=== PATIENT | female | born 1990 | race Caucasian/White ===

== ENCOUNTER 2017-04-08 08:23 | Inpatient (IN) | payer OTHER ==
[2017-04-08 09:17] VITALS: BMI 28.4
--- NOTE | 2017-04-08 11:51 | HP ---
COWS - Scale Resting Pulse: 0= [place] 80 or Below Sweatin=Flushed/Facial Moisture Restless Observation: 1= Difficult to Sit Still Pupil Size: 2= Moderately Dilated Bone or Joint Aches: 2= Severe Diffuse Aches Runny Nose/ Eye Tearin= Runny Nose/Eyes GI Upset > 30mins: 2= Nausea/Diarrhea Tremor Observation: 2= Slight Tremor Visible Yawning Observation: 1= 1-2x During Session Anxiety or Irritability: 2=Irritable/Anxious Goose Flesh Skin: 0=Smooth Skin COWS Score: 16 CIWA Score - CIWA Score Nausea/Vomitin Muscle Tremors: 4-Moderate,w/Arms Extend Anxiety: 4-Mod. Anxious/Guarded Agitation: 4-Moderately Restless Paroxysmal Sweats: 3 Orientation: 0-Oriented Tacttile Disturbances: 0-None Auditory Disturbances: 0-None Visual Disturbances: 0-None Headache: 0-None Present CIWA-Ar Total Score: 17 Admission ROS BHS - HPI Chief Complaint: Withdrawal sx. Allergies/Adverse Reactions: Allergies Allergy/AdvReac Type Severity Reaction Status Date / Time Penicillins Allergy Intermediate Rash Verified 04/08/17 09:49 History of Present Illness: 26 y/o woman with hx. of drug dependence is admitted for detox.Pt. denies previous detox. Exam Limitations: No Limitations - Ebola screening Have you traveled outside of the country in the last 21 days: No Have you had contact with anyone from an Ebola affected area: No Have you been sick,other than usual withdrawal symptoms: No - Review of Systems Constitutional: Diaphoresis EENT: reports: Nose Congestion Respiratory: reports: No Symptoms reported Cardiac: reports: No Symptoms Reported GI: reports: Nausea, Abdominal cramping Musculoskeletal: reports: No Symptoms Reported Integumentary: reports: Sweating Neuro: reports: Seizure (? possible 5 yrs. ago), Tremors Endocrine: reports: No Symptoms Reported Hematology: reports: No Symptoms Reported Psychiatric: reports: No Sypmtoms Reported Other Systems: Reviewed and Negative Patient History - Patient Medical History Hx Anemia: No Hx Asthma: No Hx Chronic Obstructive Pulmonary Disease (COPD): No Hx Cancer: No Hx Cardiac Disorders: No Hx Congestive Heart Failure: No Hx Hypertension: No Hx Hypercholesterolemia: No Hx Pacemaker: No HX Cerebrovascular Accident: No Hx Seizures: Yes (not sure but possble 5 yrs. ago) Hx Dementia: No Hx Diabetes: No Hx Gastrointestinal Disorders: No Hx Genitourinary Disorders: No Hx Sexually Transmitted Disorders: No Hx Renal Disease (ESRD): No Hx Thyroid Disease: No Hx Human Immunodeficiency Virus (HIV): No Hx Hepatitis C: No Hx Depression: No Hx Suicide Attempt: No Hx Bipolar Disorder: Yes Hx Schizophrenia: No - Patient Surgical History Past Surgical History: Yes Hx Breast Surgery: Yes (mass removed 2005) - PPD History Previous Implant?: Yes Documented Results: Negative w/o proof Implanted On Prior R Admission?: No PPD to be Administered?: Yes - Reproductive History Patient is a Female of Child Bearing Age (11 -55 yrs old): Yes Last Menstrual Period: 03/15/17 Patient : No - Smoking Cessation Smoking history: Never smoked Have you smoked in the past 12 months: No Hx Chewing Tobacco Use: No Initiated information on smoking cessation: No - Substance & Tx. History Hx Alcohol Use: No Hx Substance Use: Yes Substance Use Type: Opiates Hx Substance Use Treatment: No - Substances Abused percocet Route: Oral Frequency: Daily Amount used: 50mg Age of first use: 25 Date of Last Use: 04/07/17 Benzodiazepine (Lorazepam) Route: Oral Frequency: Daily Age of first use: 26 Date of Last Use: 04/04/17 Family Disease History - Family Disease History Family Disease History: Diabetes: Grandparent (Lung), CA: Grandparent Admission Physical Exam BHS - Vital Signs Vital Signs: Vital Signs - 24 hr 04/08/17 09:13 Temperature 96.6 F L Pulse Rate 78 Respiratory 18 Rate Blood Pressure 121/82 - Physical General Appearance: Yes: Tremorous, Irritable, Sweating, Anxious HEENTM: Yes: Nasal Congestion, Rhinorrhea Respiratory: Yes: Chest Non-Tender, Lungs Clear, Normal Breath Sounds Neck: Yes: Supple Breast: Yes: Breast Exam Deferred Cardiology: Yes: Regular Rhythm, Regular Rate, S1, S2 Abdominal: Yes: Normal Bowel Sounds, Non Tender, Soft Genitourinary: Yes: Within Normal Limits Back: Yes: Within Normal Limits Musculoskeletal: Yes: Within Normal Limits Extremities: Yes: Tremors Neurological: Yes: Fully Oriented, Alert Integumentary: Yes: Diaphoresis Lymphatic: Yes: Within Normal Limits - Diagnostic (1) Opioid dependence with withdrawal Current Visit: Yes Status: Acute (2) Sedative, hypnotic or anxiolytic dependence with withdrawal, uncomplicated Current Visit: Yes Status: Acute Cleared for Admission [facility] - Detox or Rehab [facility] Level of Care: Medically Managed Detox Regimen/Protocol: Methadone/Valium [facility] Breath Alcohol Content Breath Alcohol Content: 0 Urine Pregancy Test - Result Urine Test Results: Negative- NO Line Present Urine Drug Screen - Results Drug Screen Negative: No Urine Drug Screen Results: OXY-Oxycodone
[2017-04-08] MEDS ORDERED: MENTHOL/PHENOL 1 EACH UD MM PRN (12:03)
[2017-04-08] MEDS ORDERED: MAGNESIUM CITRATE 300 ML BOTTLE PO PRN (12:03)
[2017-04-08] MEDS ORDERED: MAG HYDROX/AL HYDROX/SIMETH 30 ML UNIT-DOSE CUP PO PRN (12:03)
[2017-04-08] MEDS ORDERED: MAGNESIUM HYDROX 2400MG/30ML ORAL SUSPENSION 30 ML CUP PO PRN (12:03)
[2017-04-08] MEDS ORDERED: guaiFENesin/D-METHORPHAN HB 10 ML UNIT-DOSE CUPS PO PRN (12:03)
[2017-04-08] MEDS ORDERED: P-EPHED 60MG/TRIPROLIDI 2.5MG TABLET PO PRN (12:03)
[2017-04-08] MEDS ORDERED: diazePAM 5 MG TABLET PO ONE (12:03)
[2017-04-08] MEDS ORDERED: diphenhydrAMINE HCL 50 MG CAPSULE PO PRN (12:03)
[2017-04-08] MEDS ORDERED: LOPERAMIDE HCL 2 MG CAPSULE PO PRN (12:03)
[2017-04-08] MEDS ORDERED: METHADONE HCL 10 MG TABLET (FOR DETOX USE ONLY) PO ONE ×2 (12:14→23:00)
[2017-04-08] MEDS: diazePAM 5 MG TABLET PO SCH ×2 (13:10→22:59)
[2017-04-08 16:39] LABS: URINE APPEARANCE CLEAR; URINE BILIRUBIN NEGATIVE (NEGATIVE); URINE COLOR LTYELLOW; URINE GLUCOSE (UA) NEGATIVE (NEGATIVE); URINE KETONE NEGATIVE (NEGATIVE); URINE LEUK ESTERASE NEGATIVE (NEGATIVE); URINE NITRITE NEGATIVE (NEGATIVE); URINE PROTEIN NEGATIVE (NEGATIVE); URINE UROBILINOGEN NEGATIVE E.U./dl (0.2-1.0)
[2017-04-08 17:03] LABS: URINE BLOOD 1+ (NEGATIVE)
[2017-04-08 17:15] LABS: URINE BACTERIA RARE /hpf (NONE SEEN); URINE MUCUS RARE; URINE RBC 1 /hpf (0-3); URINE WBC <1 /hpf (3-5)
[2017-04-08] MEDS: diazePAM 5 MG TABLET PO PRN (17:26)
[2017-04-08] MEDS: THIAMINE HCL 100 MG TABLET (FP) PO SCH (22:59)
[2017-04-09] MEDS: diazePAM 5 MG TABLET PO SCH ×3 (05:28→22:32)
[2017-04-09 09:58] LABS: MCH 30.2 pg (25.7-33.7); MCHC 33.5 g/dl (32.0-36.0); PLATELET COUNT 241 K/MM3 (134-434); WHITE BLOOD COUNT 7.3 K/mm3 (4.0-10.0)
[2017-04-09] MEDS ORDERED: METHADONE HCL 10 MG TABLET (FOR DETOX USE ONLY) PO SCH (10:00)
[2017-04-09 10:17] LABS: ALK PHOS 78 U/L (45-117); ANION GAP 5 (8-16); BILIRUBIN,TOTAL 0.8 mg/dL (0.2-1.0); CALCIUM 9.2 mg/dL (8.5-10.1); CO2 31 mmol/L (21-32); COCKROFT - GAULT 210.6045; CREATININE 0.5 mg/dL (0.55-1.02); GLUCOSE,RANDOM 60 mg/dL (74-106); SGOT/AST 15 U/L (15-37); SGPT/ALT 21 U/L (12-78); TOT PROT 7.8 g/dl (6.4-8.2)
[2017-04-09] MEDS: PRENATAL VITAMINS W/ FOLIC ACID TABLET (FP) PO SCH (10:49)
[2017-04-09] MEDS: diazePAM 5 MG TABLET PO PRN ×2 (10:51→18:01)
--- NOTE | 2017-04-09 11:01 | PN ---
S CIWA - CIWA Score Nausea/Vomitin Muscle Tremors: 3 Anxiety: 3 Agitation: 1-Slight > Activity Paroxysmal Sweats: 1-Minimal Palms Moist Orientation: 0-Oriented Tacttile Disturbances: 1-Very Mild Itch/Numbness Auditory Disturbances: 1-Very Mild Visual Disturbances: 1-Very Mild Sensitivity Headache: 2-Mild CIWA-Ar Total Score: 16 BHS COWS - Scale Resting Pulse: 1= [place] 81-100 Sweatin=Flushed/Facial Moisture Restless Observation: 3= Extraneous Movement Pupil Size: 1= Pupils >than Normal Bone or Joint Aches: 2= Severe Diffuse Aches Runny Nose/ Eye Tearin= Runny Nose/Eyes GI Upset > 30mins: 3= Vomiting/Diarrhea Tremor Observation of Outstretched Hands: 2= Slight Tremor Visible Yawning Observation: 1= 1-2x During Session Anxiety or Irritability: 2=Irritable/Anxious Goose Flesh Skin: 0=Smooth Skin COWS Score: 19 S Progress Note (SOAP) Subjective: ALERT,IRRITABLE,ANXIOUS,INTERRUPTED SLEEP,TREMOR,PAIN IN THE BODY AND BACK Objective: 04/09/17 10:58 Vital Signs Temperature 97.7 F 04/09/17 10:06 Pulse Rate 95 H 04/09/17 10:06 Respiratory Rate 16 04/09/17 10:06 Blood Pressure 117/74 04/09/17 10:06 O2 Sat by Pulse Oximetry (%) EKG NSR NO CHEST PAIN,NO SOB,NO DIZZINESS Laboratory Last Values WBC 7.3 K/mm3 (4.0-10.0) 04/09/17 06:00 RBC 4.31 M/mm3 (3.60-5.2) 04/09/17 06:00 Hgb 13.0 GM/dL (10.7-15.3) 04/09/17 06:00 Hct 38.8 % (32.4-45.2) 04/09/17 06:00 MCV 90.0 fl (80-96) 04/09/17 06:00 MCHC 33.5 g/dl (32.0-36.0) 04/09/17 06:00 RDW 13.0 % (11.6-15.6) 04/09/17 06:00 Plt Count 241 K/MM3 (134-434) 04/09/17 06:00 MPV 9.0 fl (7.5-11.1) 04/09/17 06:00 Sodium 139 mmol/L (136-145) 04/09/17 06:00 Potassium 4.1 mmol/L (3.5-5.1) 04/09/17 06:00 Chloride 103 mmol/L (98-107) 04/09/17 06:00 Carbon Dioxide 31 mmol/L (21-32) 04/09/17 06:00 Anion Gap 5 (8-16) L 04/09/17 06:00 BUN 9 mg/dL (7-18) 04/09/17 06:00 Creatinine 0.5 mg/dL (0.55-1.02) L 04/09/17 06:00 Creat Clearance w eGFR > 60 (>60) 04/09/17 06:00 Random Glucose 60 mg/dL (74-106) L 04/09/17 06:00 Calcium 9.2 mg/dL (8.5-10.1) 04/09/17 06:00 Total Bilirubin 0.8 mg/dL (0.2-1.0) 04/09/17 06:00 AST 15 U/L (15-37) 04/09/17 06:00 ALT 21 U/L (12-78) 04/09/17 06:00 Alkaline Phosphatase 78 U/L (45-117) 04/09/17 06:00 Total Protein 7.8 g/dl (6.4-8.2) 04/09/17 06:00 Albumin 4.0 g/dl (3.4-5.0) 04/09/17 06:00 Urine Color Ltyellow 04/08/17 14:50 Urine Appearance Clear 04/08/17 14:50 Urine pH 6.0 (5.0-8.0) 04/08/17 14:50 Ur Specific [place] 1.020 (1.005-1.025) 04/08/17 14:50 Urine Protein Negative (NEGATIVE) 04/08/17 14:50 Urine Glucose (UA) Negative (NEGATIVE) 04/08/17 14:50 Urine Ketones Negative (NEGATIVE) 04/08/17 14:50 Urine Blood 1+ (NEGATIVE) H 04/08/17 14:50 Urine Nitrite Negative (NEGATIVE) 04/08/17 14:50 Urine Bilirubin Negative (NEGATIVE) 04/08/17 14:50 Urine Urobilinogen Negative E.U./dl (0.2-1.0) 04/08/17 14:50 Ur Leukocyte Esterase Negative (NEGATIVE) 04/08/17 14:50 Urine RBC 1 /hpf (0-3) 04/08/17 14:50 Urine WBC <1 /hpf (3-5) 04/08/17 14:50 Ur Epithelial Cells Rare /hpf (FEW) 04/08/17 14:50 Urine Bacteria Rare /hpf (NONE SEEN) 04/08/17 14:50 Urine Mucus Rare 04/08/17 14:50 LABS PENDING Assessment: 04/09/17 11:00 WITHDRAWAL SYMPTOM Plan: CONTINUE DETOX,INITIAL GLUCOSE IS 60,FASTING GLUCOSE IN AM
[2017-04-09] MEDS: NICOTINE POLACRILEX 2 MG GUM BUC PRN (14:05)
--- NOTE | 2017-04-09 14:49 | CONSULT ---
[facility] Psychiatric Consult - Data Date of interview: 04/09/17 Admission source: [facility] Identifying data: First admission to [facility] for this 26 y/o female seeking detox treatment for opiate and benzodiazepine dependence.Patient is single without children,domiciled,unemployed and supported by relatives. Substance Abuse History: - Smoking Cessation. Smoking history: Never smoked. Have you smoked in the past 12 months: No. Hx Chewing Tobacco Use: No. Initiated information on smoking cessation: No. - Substance & Tx. History. Hx Alcohol Use: No. Hx Substance Use: Yes. Substance Use Type: Opiates. Hx Substance Use Treatment: No. - Substances Abused. percocet. Route: Oral. Frequency: Daily. Amount used: 50mg. Age of first use: 25. Date of Last Use: 04/07/17. Benzodiazepine (Lorazepam). Route: Oral. Frequency: Daily. Age of first use: 26. Date of Last Use: 04/04/17. Confirmed by patient. Medical History: Patient endorses good general health. Psychiatric History: Patient admits to a history of three psychiatric hospitalizations ([facility]).Diagnosed with Bipolar Disorder and Anxiety Disorder.Ms Redmond is followed by Dr Chirinos,a private psychiatrist, in the [place].Managed on a regimen of risperdal 4 mg/hs + adderall 20 mg po bid + ambien 10 mg/hs + ativan (dose not recalled).Patient states that she took her medications prior to this [facility] visit.Denies history of suicide attempts. Physical/Sexual Abuse/Trauma History: Patient denies history of abuse. Additional Comment: Urine Drug Screen Results: OXY-Oxycodone.Noted. Mental Status Exam - Mental Status Exam Alert and Oriented to: Time, Place, Person Cognitive Function: Good Patient Appearance: Well Groomed Mood: Anxious, Apprehensive Affect: Mood Congruent Patient Behavior: Fatigued, Appropriate, Cooperative Speech Pattern: Clear Voice Loudness: Normal Thought Process: Goal Oriented Thought Disorder: Not Present Hallucinations: Denies Suicidal Ideation: Denies Homicidal Ideation: Denies Insight/Judgement: Poor Sleep: Poorly, Difficulty falling asleep Appetite: Good Muscle strength/Tone: Normal Gait/Station: Normal Psychiatric Findings - Problem List ([place] 1, 2,3) (1) Opioid dependence with withdrawal Current Visit: Yes Status: Acute (2) Sedative, hypnotic or anxiolytic dependence with withdrawal, uncomplicated Current Visit: Yes Status: Acute (3) Substance induced mood disorder Current Visit: Yes Status: Acute (4) Bipolar disorder Current Visit: Yes Status: Chronic Comment: By history. (5) Insomnia Current Visit: Yes Status: Acute - Initial Treatment Plan Initial Treatment Plan: Psychoeducation.Detoxification.Medications : risperdal 3 mg po hs + ambien 5 mg po hs + wellbutrin XL 150 mg po daily.Medications are verified through review of pharmacy claims (scripts issued on 03/13/17 at the [facility] ([address]) from provider Dr Chirinos).Side effects/benefits discussed with patient.Made aware of potential for abnormal involuntary movements,akathisia,akinesia,dystonias,dyskinesias,neuroleptic malignant syndrome,endocrine complications (galactorrhea,gynecomastia,sexual dysfunction) and cardiac adverse events from the use of risperdal,seizures (bupropion) and parasomnias (ambien).No report (as per patient) of prior adverse effects.Patient is in agreement with this plan of care.Observation.Adderall is held (to be resumed by OPD psychiatrist).
[2017-04-09] MEDS: ZOLPIDEM TARTRATE 5 MG TABLET PO PRN (22:32)
[2017-04-09] MEDS: THIAMINE HCL 100 MG TABLET (FP) PO SCH (22:32)
[2017-04-09] MEDS: risperiDONE 3 MG TABLET PO SCH (22:32)
[2017-04-10] MEDS: diazePAM 5 MG TABLET PO PRN ×2 (05:21→17:37)
[2017-04-10] MEDS: diazePAM 5 MG TABLET PO SCH ×2 (10:49→22:26)
[2017-04-10] MEDS: PRENATAL VITAMINS W/ FOLIC ACID TABLET (FP) PO SCH (10:49)
[2017-04-10] MEDS: METHADONE HCL 5 MG TABLET (FOR DETOX USE ONLY) PO SCH (10:50)
[2017-04-10] MEDS: cloNIDine HCL 0.1 MG TABLET PO SCH ×2 (11:32→22:27)
[2017-04-10] MEDS: CYCLOBENZAPRINE HCL 10 MG TABLET (FP) PO PRN ×2 (11:32→20:06)
--- NOTE | 2017-04-10 12:10 | PN ---
S CIWA - CIWA Score Nausea/Vomitin Muscle Tremors: 3 Anxiety: 2 Agitation: 2 Paroxysmal Sweats: 1-Minimal Palms Moist Orientation: 0-Oriented Tacttile Disturbances: 1-Very Mild Itch/Numbness Auditory Disturbances: 1-Very Mild Visual Disturbances: 1-Very Mild Sensitivity Headache: 2-Mild CIWA-Ar Total Score: 16 BHS COWS - Scale Resting Pulse: 1= [place] 81-100 Sweatin= Chills/Flushing Restless Observation: 3= Extraneous Movement Pupil Size: 1= Pupils >than Normal Bone or Joint Aches: 2= Severe Diffuse Aches Runny Nose/ Eye Tearin= Runny Nose/Eyes GI Upset > 30mins: 2= Nausea/Diarrhea Tremor Observation of Outstretched Hands: 2= Slight Tremor Visible Yawning Observation: 1= 1-2x During Session Anxiety or Irritability: 2=Irritable/Anxious Goose Flesh Skin: 0=Smooth Skin COWS Score: 17 S Progress Note (SOAP) Subjective: ALERT,IRRITABLE,ANXIOUS,INTERRUPTED SLEEP,PAIN IN THE BODY AND BACK Objective: 04/10/17 12:08 Vital Signs Temperature 97.9 F 04/10/17 06:13 Pulse Rate 94 H 04/10/17 06:13 Respiratory Rate 18 04/10/17 06:13 Blood Pressure 110/62 04/10/17 06:13 O2 Sat by Pulse Oximetry (%) Laboratory Last Values WBC 7.3 K/mm3 (4.0-10.0) 04/09/17 06:00 RBC 4.31 M/mm3 (3.60-5.2) 04/09/17 06:00 Hgb 13.0 GM/dL (10.7-15.3) 04/09/17 06:00 Hct 38.8 % (32.4-45.2) 04/09/17 06:00 MCV 90.0 fl (80-96) 04/09/17 06:00 MCHC 33.5 g/dl (32.0-36.0) 04/09/17 06:00 RDW 13.0 % (11.6-15.6) 04/09/17 06:00 Plt Count 241 K/MM3 (134-434) 04/09/17 06:00 MPV 9.0 fl (7.5-11.1) 04/09/17 06:00 Sodium 139 mmol/L (136-145) 04/09/17 06:00 Potassium 4.1 mmol/L (3.5-5.1) 04/09/17 06:00 Chloride 103 mmol/L (98-107) 04/09/17 06:00 Carbon Dioxide 31 mmol/L (21-32) 04/09/17 06:00 Anion Gap 5 (8-16) L 04/09/17 06:00 BUN 9 mg/dL (7-18) 04/09/17 06:00 Creatinine 0.5 mg/dL (0.55-1.02) L 04/09/17 06:00 Creat Clearance w eGFR > 60 (>60) 04/09/17 06:00 Random Glucose 60 mg/dL (74-106) L 04/09/17 06:00 Fasting Glucose 96 mg/dL (70-105) 04/10/17 08:00 Calcium 9.2 mg/dL (8.5-10.1) 04/09/17 06:00 Total Bilirubin 0.8 mg/dL (0.2-1.0) 04/09/17 06:00 AST 15 U/L (15-37) 04/09/17 06:00 ALT 21 U/L (12-78) 04/09/17 06:00 Alkaline Phosphatase 78 U/L (45-117) 04/09/17 06:00 Total Protein 7.8 g/dl (6.4-8.2) 04/09/17 06:00 Albumin 4.0 g/dl (3.4-5.0) 04/09/17 06:00 Urine Color Ltyellow 04/08/17 14:50 Urine Appearance Clear 04/08/17 14:50 Urine pH 6.0 (5.0-8.0) 04/08/17 14:50 Ur Specific [place] 1.020 (1.005-1.025) 04/08/17 14:50 Urine Protein Negative (NEGATIVE) 04/08/17 14:50 Urine Glucose (UA) Negative (NEGATIVE) 04/08/17 14:50 Urine Ketones Negative (NEGATIVE) 04/08/17 14:50 Urine Blood 1+ (NEGATIVE) H 04/08/17 14:50 Urine Nitrite Negative (NEGATIVE) 04/08/17 14:50 Urine Bilirubin Negative (NEGATIVE) 04/08/17 14:50 Urine Urobilinogen Negative E.U./dl (0.2-1.0) 04/08/17 14:50 Ur Leukocyte Esterase Negative (NEGATIVE) 04/08/17 14:50 Urine RBC 1 /hpf (0-3) 04/08/17 14:50 Urine WBC <1 /hpf (3-5) 04/08/17 14:50 Ur Epithelial Cells Rare /hpf (FEW) 04/08/17 14:50 Urine Bacteria Rare /hpf (NONE SEEN) 04/08/17 14:50 Urine Mucus Rare 04/08/17 14:50 RPR Titer Nonreactive (NONREACTIVE) 04/09/17 06:00 Assessment: 04/10/17 12:09 WITHDRAWAL SYMPTOM Plan: CONTINUE DETOX
--- NOTE | 2017-04-10 15:51 | EKG ---
Test Reason : Blood Pressure : / mmHG Vent. Rate : 079 BPM Atrial Rate : 079 BPM P-R Int : 192 ms QRS Dur : 086 ms QT Int : 382 ms P-R-T Axes : 106 137 123 degrees QTc Int : 438 ms SUSPECT ARM LEAD REVERSAL NORMAL SINUS RHYTHM RECOMMEND REPEAT TRACING Confirmed by ELVIRA CABRERA, SIMRAN ([id number]) on 04/10/2017 3:51:25 PM Referred By: Jason Herman Confirmed By:SIMRAN FELIX MD
[2017-04-10] MEDS: risperiDONE 3 MG TABLET PO SCH (22:26)
[2017-04-10] MEDS: ZOLPIDEM TARTRATE 5 MG TABLET PO PRN (22:26)
[2017-04-10] MEDS: THIAMINE HCL 100 MG TABLET (FP) PO SCH (22:26)
[2017-04-11] MEDS: IBUPROFEN 400 MG TABLET (FP) PO PRN (03:36)
[2017-04-11] MEDS: CYCLOBENZAPRINE HCL 10 MG TABLET (FP) PO PRN ×2 (05:25→22:15)
[2017-04-11] MEDS: ACETAMINOPHEN 325 MG TABLET (FP) PO PRN (05:25)
[2017-04-11] MEDS: diazePAM 5 MG TABLET PO PRN (05:25)
--- NOTE | 2017-04-11 10:13 | PN ---
BHS Progress Note (SOAP) Subjective: ALERT,IRRITABLE,ANXIOUS,INTERRUPTED SLEEP,PAIN IN THE BODY AND BACK Objective: 04/11/17 10:12 Vital Signs Temperature 98.8 F 04/11/17 09:50 Pulse Rate 113 H 04/11/17 09:50 Respiratory Rate 16 04/11/17 09:50 Blood Pressure 110/74 04/11/17 09:50 O2 Sat by Pulse Oximetry (%) Assessment: 04/11/17 10:12 WITHDRAWAL SYMPTOM Plan: CONTINUE DETOX
[2017-04-11] MEDS: PRENATAL VITAMINS W/ FOLIC ACID TABLET (FP) PO SCH (10:35)
[2017-04-11] MEDS: cloNIDine HCL 0.1 MG TABLET PO SCH ×2 (10:36→22:13)
[2017-04-11] MEDS: diazePAM 5 MG TABLET PO SCH ×2 (10:36→22:13)
[2017-04-11] MEDS: METHADONE HCL 5 MG TABLET (FOR DETOX USE ONLY) PO SCH (10:37)
[2017-04-11] MEDS: ZOLPIDEM TARTRATE 5 MG TABLET PO PRN (22:13)
[2017-04-11] MEDS: THIAMINE HCL 100 MG TABLET (FP) PO SCH (22:14)
[2017-04-11] MEDS: risperiDONE 3 MG TABLET PO SCH (22:14)
[2017-04-11] MEDS: NICOTINE POLACRILEX 2 MG GUM BUC PRN (22:37)
[2017-04-12] MEDS: hydrOXYzine PAMOATE 50 MG CAPSULE (FP) PO PRN ×2 (01:46→17:28)
[2017-04-12] MEDS: IBUPROFEN 400 MG TABLET (FP) PO PRN ×2 (01:47→15:29)
[2017-04-12] MEDS: ACETAMINOPHEN 325 MG TABLET (FP) PO PRN ×2 (04:18→19:55)
[2017-04-12] MEDS: CYCLOBENZAPRINE HCL 10 MG TABLET (FP) PO PRN ×3 (04:37→22:24)
--- NOTE | 2017-04-12 09:41 | PN ---
S Progress Note (SOAP) Subjective: ALERT,IRRITABLE,INTERRUPTED SLEEP Objective: 04/12/17 09:39 Vital Signs Temperature 97.9 F 04/11/17 20:55 Pulse Rate 106 H 04/12/17 05:54 Respiratory Rate 18 04/12/17 05:54 Blood Pressure 120/55 04/12/17 05:54 O2 Sat by Pulse Oximetry (%) Assessment: 04/12/17 09:39 WITHDRAWAL SYMPTOM Plan: CONTINUE DETOX,DISCHARGE IN AM
[2017-04-12] MEDS ORDERED: METHADONE HCL 10 MG TABLET (FOR DETOX USE ONLY) PO SCH (10:00)
[2017-04-12] MEDS ORDERED: diazePAM 5 MG TABLET PO SCH (10:00)
[2017-04-12] MEDS: PRENATAL VITAMINS W/ FOLIC ACID TABLET (FP) PO SCH (10:20)
[2017-04-12] MEDS: cloNIDine HCL 0.1 MG TABLET PO SCH ×2 (10:20→22:22)
[2017-04-12] MEDS: NICOTINE POLACRILEX 2 MG GUM BUC PRN ×2 (12:47→17:29)
--- NOTE | 2017-04-12 14:11 | EKG ---
Test Reason : Blood Pressure : / mmHG Vent. Rate : 100 BPM Atrial Rate : 100 BPM P-R Int : 204 ms QRS Dur : 078 ms QT Int : 358 ms P-R-T Axes : 055 047 038 degrees QTc Int : 461 ms NORMAL SINUS RHYTHM WHEN COMPARED WITH ECG OF 08-APR-2017 12:21, VENT. RATE HAS INCREASED Confirmed by TAYA GASTELUM MD ([id number]) on 04/12/2017 2:10:57 PM Referred By: Jason Herman Confirmed By:TAYA GASTELUM MD
[2017-04-12] MEDS: THIAMINE HCL 100 MG TABLET (FP) PO SCH (22:22)
[2017-04-12] MEDS: risperiDONE 3 MG TABLET PO SCH (22:22)
[2017-04-12] MEDS ORDERED: ZOLPIDEM TARTRATE 5 MG TABLET PO ONE (22:55)
[2017-04-13] MEDS: CYCLOBENZAPRINE HCL 10 MG TABLET (FP) PO PRN (05:35)
[2017-04-13] MEDS ORDERED: METHADONE HCL 5 MG TABLET (FOR DETOX USE ONLY) PO SCH (06:00)
--- NOTE | 2017-04-13 08:57 | PN ---
S Progress Note (SOAP) Subjective: ALERT,NO COMPLAINT Objective: 04/13/17 08:56 Vital Signs Temperature 97.7 F 04/13/17 06:00 Pulse Rate 104 H 04/13/17 06:00 Respiratory Rate 18 04/13/17 06:00 Blood Pressure 125/70 04/13/17 06:00 O2 Sat by Pulse Oximetry (%) Assessment: 04/13/17 08:56 DETOX COMPLETED,NO WITHDRAWAL SYMPTOM Plan: DISCHARGE TODAY,FOLLOW UP WITH AFTER CARE PROGRAM ARRANGEMENT
--- NOTE | 2017-04-13 09:02 | DS ---
[facility] Detox Discharge Summary Admission Date: 04/08/17 Discharge Date: 04/13/17 - History Present History: Opioid Dependence, Sedative Dependence Additional Comments: FOLLOW UP WITH AFTER CARE PROGRAM REVELATION ARRANGEMENT Pertinent Past History: BIPOLAR DISORDER - Physical Exam Results Vital Signs: Vital Signs Temperature 97.7 F 04/13/17 06:00 Pulse Rate 104 H 04/13/17 06:00 Respiratory Rate 18 04/13/17 06:00 Blood Pressure 125/70 04/13/17 06:00 O2 Sat by Pulse Oximetry (%) Pertinent Admission Physical Exam Findings: WITHDRAWAL SYMPTOM - Treatment Hospital Course: Detox Protocol Followed, Detoxed Safely, Responded well, Discharged Condition Good, Rehab Referral Accepted Patient has Accepted a Rehab Referral to: [facility] - Medication Discharge Medications: Ambulatory Orders Dextroamphetamine/Amphetamine [Adderall 10 mg Tablet] 40 mg PO DAILY 04/08/17 Lorazepam [Ativan] 5 mg PO DAILY 04/08/17 Risperidone [Risperdal] 4 mg PO DAILY 04/08/17 - Diagnosis (1) Insomnia Current Visit: Yes Status: Acute (2) Opioid dependence with withdrawal Current Visit: Yes Status: Acute (3) Sedative, hypnotic or anxiolytic dependence with withdrawal, uncomplicated Current Visit: Yes Status: Acute (4) Bipolar disorder Current Visit: Yes Status: Chronic - AMA Did Patient Leave Against Medical Advice: No
[2017-04-13 09:37] VITALS: BP 127/77; PULSE 120; TEMP 98.4
[2017-04-13] MEDS: PRENATAL VITAMINS W/ FOLIC ACID TABLET (FP) PO SCH (09:54)
[2017-04-13] MEDS: cloNIDine HCL 0.1 MG TABLET PO SCH (09:54)
[2017-04-13] MEDS: hydrOXYzine PAMOATE 50 MG CAPSULE (FP) PO PRN (09:56)
[2017-04-13] MEDS: NICOTINE POLACRILEX 2 MG GUM BUC PRN (10:26)
== END 2017-04-13 10:40 | disposition other institution (70) | DRG 773 ==
LOC: YASAS 08:23 → Y6N 11:50
PROVIDERS: ADMIT Internal Medicine; ATTEND Internal Medicine
PROC: HZ2ZZZZ Detoxification Services for Substance Abuse Treatment (ICD-10-PCS; principal; 2017-04-08)
DX: F11.23 Opioid dependence with withdrawal (principal); F13.230 Sedative, hypnotic or anxiolytic dependence with withdrawal, uncomplicated; F31.9 Bipolar disorder, unspecified; F19.24 Other psychoactive substance dependence with psychoactive substance-induced mood disorder; G47.00 Insomnia, unspecified
CPT/HCPCS: 36415; 80053; 81003; 81015; 82947; 85027; 86593; 93005; 93010

== ENCOUNTER 2017-04-13 11:06 | Inpatient (IN) | payer OTHER ==
[2017-04-13 11:29] VITALS: BMI 30.1
[2017-04-13] MEDS ORDERED: LOPERAMIDE HCL 2 MG CAPSULE PO PRN (13:25)
[2017-04-13] MEDS ORDERED: MAGNESIUM HYDROX 2400MG/30ML ORAL SUSPENSION 30 ML CUP PO PRN (13:25)
[2017-04-13] MEDS ORDERED: ACETAMINOPHEN 325 MG TABLET (FP) PO PRN (13:25)
[2017-04-13] MEDS ORDERED: P-EPHED 60MG/TRIPROLIDI 2.5MG TABLET PO PRN (13:25)
[2017-04-13] MEDS ORDERED: MAGNESIUM CITRATE 300 ML BOTTLE PO PRN (13:25)
[2017-04-13] MEDS ORDERED: MAG HYDROX/AL HYDROX/SIMETH 30 ML UNIT-DOSE CUP PO PRN (13:25)
--- NOTE | 2017-04-13 13:27 | HP ---
[facility] Rehab Assess/Revision - Admission History Ad[facility] to Rehab [facility] Date of Admission to Rehab: 04/13/17 - Vital signs Vital Signs: Vital Signs Period Temp Pulse Resp BP Sys/May Pulse Ox Last 24 Hr 99 F-99 F 103-103 120-120/75-75 - Findings Detox History & Physical reviewed: Yes Concur with findings: Yes
[2017-04-13] MEDS: IBUPROFEN 400 MG TABLET (FP) PO PRN (14:10)
[2017-04-13] MEDS: hydrOXYzine PAMOATE 50 MG CAPSULE (FP) PO PRN (18:03)
[2017-04-13] MEDS: NICOTINE POLACRILEX 2 MG GUM BUC PRN (18:29)
[2017-04-13] MEDS: risperiDONE 3 MG TABLET PO SCH (21:56)
[2017-04-13] MEDS: THIAMINE HCL 100 MG TABLET (FP) PO SCH (21:57)
[2017-04-13] MEDS: SUVOREXANT 10 MG TABLET PO PRN (22:00)
[2017-04-13] MEDS: guaiFENesin/D-METHORPHAN HB 10 ML UNIT-DOSE CUPS PO PRN (23:05)
[2017-04-13] MEDS: MENTHOL/PHENOL 1 EACH UD MM PRN (23:06)
[2017-04-14] MEDS: diphenhydrAMINE HCL 50 MG CAPSULE PO PRN (01:09)
[2017-04-14] MEDS: MENTHOL/PHENOL 1 EACH UD MM PRN ×3 (03:06→15:18)
[2017-04-14] MEDS: hydrOXYzine PAMOATE 50 MG CAPSULE (FP) PO PRN ×4 (06:12→21:42)
--- NOTE | 2017-04-14 08:12 | HP ---
Psychiatrist Admission - Data Date of interview: 04/14/17 Admission source: [facility] Identifying data: This is the first admission to [address] [place] [address] for this 26 years old H female single,no children,resides with mother,student of nursing school. Medical History: unremarkable Psychiatric History: Patient has been on Adderall since school age,prescribed by her Family doctor.First contact with psychiatrist was about 1 year ago in March 2016 to depressed mood,drug use.She was placed on Ativan,Adderall, Seroquel.Patient reports 3 psychiatric admissions to [facility] due to severe depression .She was dx with Bipolar II Disorder.She was placed on Risperidone.She sees private psychiatrist in the [place],current medications Seroquel 100 mg po hs,Adderall 20 mg po bid,Risperidone 4 mg po hs, Ambien 10 mg po hs ,Wellbutrin XL 150 mg po daily and Ativan PRN. Physical/Sexual Abuse/Trauma History: denies history of sexual/physical abuse. Vital Signs: Vital Signs - 24 hr 04/13/17 04/13/17 04/14/17 11:24 11:28 00:30 Temperature 99 F 99 F Pulse Rate 103 H 103 H Respiratory 17 17 16 Rate Blood Pressure 120/75 120/75 04/14/17 06:49 Temperature 98.1 F Pulse Rate 98 H Respiratory 18 Rate Blood Pressure 137/72 Allergies/Adverse Reactions: Allergies Allergy/AdvReac Type Severity Reaction Status Date / Time Penicillins Allergy Intermediate Rash Verified 04/08/17 09:49 Date of last physical exam: 04/13/17 Concur with the findings of this exam: Yes - Substance Abuse/Tx History Hx Alcohol Use: Yes (socially) Hx Substance Use: Yes (Percoset since 25 yo(50 mg po daily),Ativan since 26 yo on /off) Substance Use Type: Opiates, Tranquilizers Hx Substance Use Treatment: Yes (completed detox once recently) - Admission Criteria Previous failed treatment: Yes Poor recovery environment: Yes Comorbidities: Yes Lacks judgement: Yes Mental Status Exam - Mental Status Exam Alert and Oriented to: Time, Place, Person Cognitive Function: Grossly Intact Patient Appearance: Unkempt Mood: Anxious Affect: Labile Patient Behavior: Cooperative Speech Pattern: Clear Voice Loudness: Normal Thought Process: Goal Oriented Thought Disorder: Not Present Hallucinations: Denies Suicidal Ideation: Denies Homicidal Ideation: Denies Insight/Judgement: Fair Sleep: Fair Appetite: Fair Muscle strength/Tone: Normal Gait/Station: Normal Psychiatric Findings - Problem List ([place] 1, 2,3) (1) Opioid dependence with withdrawal Status: Chronic (2) Sedative, hypnotic or anxiolytic dependence with withdrawal, uncomplicated Status: Chronic (3) Bipolar II disorder Status: Chronic - Initial Treatment Plan Initial Treatment Plan: Risperidone 3 mg po hs,Neurontin 100 mg po tid, Wellbutrin XL 150 mg po daily,Seroquel 100 mg po hs. Will monitor progress.
[2017-04-14] MEDS: guaiFENesin/D-METHORPHAN HB 10 ML UNIT-DOSE CUPS PO PRN (09:00)
[2017-04-14] MEDS: PRENATAL VITAMINS W/ FOLIC ACID TABLET (FP) PO SCH (09:54)
[2017-04-14 12:34] LABS: HIV 1 & 2 AB NEGATIVE; HIV 1 AGp24 NEGATIVE
[2017-04-14] MEDS: GABAPENTIN 100 MG CAPSULE (FP) PO SCH ×2 (13:01→21:41)
--- NOTE | 2017-04-14 15:00 | PN ---
BHS Progress Note Note: C/O sore throat Exam : enlarged tonsils with redness Dx. : URI P : Zithromax 500mg x 7 days
[2017-04-14] MEDS: AZITHROMYCIN 250 MG TABLET (FP) PO SCH (15:17)
[2017-04-14] MEDS: NICOTINE POLACRILEX 2 MG GUM BUC PRN (15:18)
[2017-04-14] MEDS ORDERED: PT OWN MED DRAWER 7, Y5N ONE (19:44)
[2017-04-14] MEDS: THIAMINE HCL 100 MG TABLET (FP) PO SCH (21:41)
[2017-04-14] MEDS: risperiDONE 3 MG TABLET PO SCH (21:41)
[2017-04-14] MEDS: QUEtiapine FUMARATE 100 MG TABLET (FP) PO SCH (21:42)
[2017-04-14] MEDS: SUVOREXANT 10 MG TABLET PO PRN (21:43)
[2017-04-15] MEDS: hydrOXYzine PAMOATE 50 MG CAPSULE (FP) PO PRN ×5 (02:35→22:09)
[2017-04-15] MEDS: MENTHOL/PHENOL 1 EACH UD MM PRN ×3 (02:35→15:54)
[2017-04-15] MEDS: GABAPENTIN 100 MG CAPSULE (FP) PO SCH ×3 (06:28→21:30)
[2017-04-15] MEDS: AZITHROMYCIN 250 MG TABLET (FP) PO SCH (10:29)
[2017-04-15] MEDS: PRENATAL VITAMINS W/ FOLIC ACID TABLET (FP) PO SCH (10:29)
[2017-04-15] MEDS: IBUPROFEN 400 MG TABLET (FP) PO PRN (15:52)
[2017-04-15] MEDS: THIAMINE HCL 100 MG TABLET (FP) PO SCH (21:30)
[2017-04-15] MEDS: QUEtiapine FUMARATE 100 MG TABLET (FP) PO SCH (21:30)
[2017-04-15] MEDS: SUVOREXANT 10 MG TABLET PO PRN (21:30)
[2017-04-15] MEDS: risperiDONE 3 MG TABLET PO SCH (22:09)
[2017-04-16] MEDS: GABAPENTIN 100 MG CAPSULE (FP) PO SCH (06:33)
[2017-04-16] MEDS: hydrOXYzine PAMOATE 50 MG CAPSULE (FP) PO PRN ×2 (06:34→20:09)
[2017-04-16] MEDS: AZITHROMYCIN 250 MG TABLET (FP) PO SCH (10:33)
[2017-04-16] MEDS: PRENATAL VITAMINS W/ FOLIC ACID TABLET (FP) PO SCH (10:33)
[2017-04-16] MEDS: CYCLOBENZAPRINE HCL 10 MG TABLET (FP) PO SCH (10:33)
[2017-04-16] MEDS: QUEtiapine FUMARATE 100 MG TABLET (FP) PO SCH ×2 (10:36→21:42)
[2017-04-16] MEDS: guaiFENesin/D-METHORPHAN HB 10 ML UNIT-DOSE CUPS PO PRN (10:37)
[2017-04-16] MEDS: LIDOCAINE VISCOUS 2% ORAL/TOP 20 ML UNIT-DOSE CUP MM PRN ×2 (15:19→20:09)
[2017-04-16] MEDS: THIAMINE HCL 100 MG TABLET (FP) PO SCH (21:42)
[2017-04-16] MEDS: risperiDONE 3 MG TABLET PO SCH (21:42)
[2017-04-16] MEDS: SUVOREXANT 10 MG TABLET PO PRN (21:45)
[2017-04-17] MEDS: IBUPROFEN 400 MG TABLET (FP) PO PRN (06:04)
[2017-04-17] MEDS: hydrOXYzine PAMOATE 50 MG CAPSULE (FP) PO PRN ×3 (06:05→20:04)
[2017-04-17] MEDS: LIDOCAINE VISCOUS 2% ORAL/TOP 20 ML UNIT-DOSE CUP MM PRN ×2 (06:05→23:33)
[2017-04-17] MEDS: CYCLOBENZAPRINE HCL 10 MG TABLET (FP) PO SCH (09:08)
[2017-04-17] MEDS: AZITHROMYCIN 250 MG TABLET (FP) PO SCH (09:08)
[2017-04-17] MEDS: QUEtiapine FUMARATE 100 MG TABLET (FP) PO SCH ×2 (09:08→21:27)
[2017-04-17] MEDS: PRENATAL VITAMINS W/ FOLIC ACID TABLET (FP) PO SCH (09:08)
[2017-04-17] MEDS: THIAMINE HCL 100 MG TABLET (FP) PO SCH (21:27)
[2017-04-17] MEDS: risperiDONE 3 MG TABLET PO SCH (21:27)
[2017-04-17] MEDS: diphenhydrAMINE HCL 50 MG CAPSULE PO PRN (21:27)
[2017-04-17] MEDS: NICOTINE POLACRILEX 2 MG GUM BUC PRN (21:45)
[2017-04-18] MEDS: QUEtiapine FUMARATE 100 MG TABLET (FP) PO SCH ×2 (09:58→21:10)
[2017-04-18] MEDS: CYCLOBENZAPRINE HCL 10 MG TABLET (FP) PO SCH (09:58)
[2017-04-18] MEDS: PRENATAL VITAMINS W/ FOLIC ACID TABLET (FP) PO SCH (09:58)
[2017-04-18] MEDS: AZITHROMYCIN 250 MG TABLET (FP) PO SCH (09:58)
[2017-04-18] MEDS: hydrOXYzine PAMOATE 50 MG CAPSULE (FP) PO PRN ×2 (13:07→17:53)
[2017-04-18] MEDS: NICOTINE POLACRILEX 2 MG GUM BUC PRN ×2 (17:56→22:05)
[2017-04-18] MEDS: risperiDONE 3 MG TABLET PO SCH (21:10)
[2017-04-18] MEDS: diphenhydrAMINE HCL 50 MG CAPSULE PO PRN (21:10)
[2017-04-18] MEDS: THIAMINE HCL 100 MG TABLET (FP) PO SCH (21:10)
[2017-04-19 06:52] VITALS: BP 108/65; PULSE 103; TEMP 98
--- NOTE | 2017-04-19 09:47 | PN ---
Psychiatric Progress Note Vital Signs: Vital Signs Period Temp Pulse Resp BP Sys/May Pulse Ox Last 24 Hr 98.0 F 103 16-16 108/65 Date of Session: 04/19/17 Chief Complaint:: Discharge visit HPI: Patient addressed Opioid dependence comorbid with Substance induced mood disorder . ROS: unremarkable Current Medications: Active Medications Generic Name Dose Route Start Last Admin Trade Name Freq PRN Reason Stop Dose Admin Acetaminophen 650 mg 04/13/17 13:25 04/14/17 15:19 Tylenol - PO 650 mg Q4H PRN Administration FEVER OR PAIN Al Hydroxide/Mg Hydroxide 30 ml 04/13/17 13:25 Mylanta Oral Suspension - PO Q6H PRN DYSPEPSIA Azithromycin 500 mg 04/14/17 15:00 04/18/17 09:58 Zithromax - PO 500 mg DAILY LALITA Administration Bupropion HCl 150 mg 04/14/17 10:00 04/18/17 09:58 Wellbutrin Xl - PO 150 mg DAILY LALITA Administration Cyclobenzaprine HCl 10 mg 04/16/17 10:00 04/18/17 09:58 Flexeril - PO 10 mg DAILY LALITA Administration Diphenhydramine HCl 50 mg 04/13/17 13:25 04/18/17 21:10 Benadryl - PO 50 mg HSMR1 PRN Administration FOR ITCHING Eucalyptus/Menthol/Phenol/Sorbitol 1 each 04/13/17 13:25 04/15/17 15:54 Cepastat Lozenge - MM 1 each Q4H PRN Administration SORE THROAT Guaifenesin 10 ml 04/13/17 13:25 04/16/17 10:37 Robitussin Dm - PO 10 ml Q6H PRN Administration COUGH Hydroxyzine Pamoate 50 mg 04/13/17 14:35 04/18/17 17:53 Vistaril - PO 50 mg Q4H PRN Administration ANXIETY Ibuprofen 400 mg 04/13/17 13:25 04/17/17 06:04 Motrin - PO 400 mg Q6H PRN Administration PAIN Lidocaine HCl 20 ml 04/16/17 15:07 04/17/17 23:33 Xylocaine 2% Viscous Oral - MM 20 ml Q4HPO PRN Administration ORAL PAIN/MOUTH SORES Loperamide HCl 4 mg 04/13/17 13:25 Imodium - PO Q6H PRN DIARRHEA Magnesium Hydroxide 30 ml 04/13/17 13:25 Milk Of Magnesia - PO DAILY PRN CONSTIPATION Nicotine Polacrilex 2 mg 04/13/17 13:25 04/18/17 22:05 Nicorette Gum - BUC 2 mg Q2H PRN Administration NICOTINE REPLACEMENT RX Multivit/Folic Acid/Iron 1 tab 04/14/17 10:00 04/18/17 09:58 Vitamins (Sjr) - PO 1 tab DAILY LALITA Administration Pseudoephedrine/Triprolidine 1 combo 04/13/17 13:25 Actifed - PO TID PRN NASAL CONGESTION Quetiapine Fumarate 100 mg 04/14/17 22:00 04/18/17 21:10 Seroquel - PO 100 mg HS LALITA Administration Quetiapine Fumarate 100 mg 04/16/17 10:30 04/18/17 09:58 Seroquel - PO 100 mg DAILY LALITA Administration Risperidone 3 mg 04/13/17 22:00 04/18/17 21:10 Risperdal - PO 3 mg HS LALITA Administration Thiamine HCl 100 mg 04/13/17 22:00 04/18/17 21:10 Vitamin B1 - PO 100 mg HS LALITA Administration Current Side Effect: No Lab tests ordered: No Lab tests reviewed: Yes Provider note:: Patient decided to sign out today since she doesnt feel comfortable in this program and will be able to address her issues on outpatient basis.Associate Broker and other medical staff made efforts to convince her to continue further stabilization in inpatient facility,but patient decided to leave [facility].Patient will continue to see a psychiatrsit Luisa JOY in the [facility].She continues to find that Wellbutrin XL 150 mg po am,Risperdal 3 mg po hs and Seroquel 100 mg po bid will help to reduce her anxiety,mood instability.Scripts for 30 days provided. Therapy provided focusing on relapse prevention. Total face to face time:: 30 Mental Status Exam - Mental Status Exam Alert and Oriented to: Time, Place, Person Cognitive Function: Grossly Intact Patient Appearance: Well Groomed Mood: Anxious Affect: Labile Patient Behavior: Restless, Resitive to Care Speech Pattern: Clear Voice Loudness: Normal Thought Process: Goal Oriented Thought Disorder: Not Present Hallucinations: Denies Suicidal Ideation: Denies Homicidal Ideation: Denies Insight/Judgement: Impaired Sleep: Fair Appetite: Good Muscle strength/Tone: Normal Gait/Station: Normal Psychiatric Treatment Plan - Problem List (1) Opioid dependence with withdrawal Current Visit: Yes (2) Sedative, hypnotic or anxiolytic dependence with withdrawal, uncomplicated Current Visit: Yes (3) Bipolar II disorder Current Visit: Yes
[2017-04-19] MEDS: AZITHROMYCIN 250 MG TABLET (FP) PO SCH (10:21)
[2017-04-19] MEDS: PRENATAL VITAMINS W/ FOLIC ACID TABLET (FP) PO SCH (10:21)
[2017-04-19] MEDS: QUEtiapine FUMARATE 100 MG TABLET (FP) PO SCH (10:21)
[2017-04-19] MEDS: CYCLOBENZAPRINE HCL 10 MG TABLET (FP) PO SCH (10:21)
== END 2017-04-19 10:45 | disposition left against medical advice (07) | DRG 770 ==
LOC: YASAS 11:06 → Y3E 11:07
PROVIDERS: ADMIT Psychiatry & Neurology Psychiatry; ATTEND Psychiatry & Neurology Psychiatry
PROC: HZ42ZZZ Group Counseling for Substance Abuse Treatment, Cognitive-Behavioral (ICD-10-PCS; principal; 2017-04-13)
DX: F11.20 Opioid dependence, uncomplicated (principal); F13.20 Sedative, hypnotic or anxiolytic dependence, uncomplicated; F19.24 Other psychoactive substance dependence with psychoactive substance-induced mood disorder; F31.81 Bipolar II disorder; J06.9 Acute upper respiratory infection, unspecified
CPT/HCPCS: 36415; 87389

== ENCOUNTER 2020-06-14 22:17 | Inpatient (IN) | payer OTHER ==
--- NOTE | 2020-06-14 23:41 | HP ---
COWS - Scale Resting Pulse: 4= CT > 121 Sweatin=Flushed/Facial Moisture Restless Observation: 1= Difficult to Sit Still Pupil Size: 0= Normal to Room Light Bone or Joint Aches: 4=Acute Joint/Muscle Pain Runny Nose/ Eye Tearin= Nasal Congestion GI Upset > 30mins: 1= Stomach Cramp Tremor Observation: 2= Slight Tremor Visible Yawning Observation: 1= 1-2x During Session Anxiety or Irritability: 2=Irritable/Anxious Goose Flesh Skin: 0=Smooth Skin COWS Score: 18 CIWA Score Nausea/Vomitin Muscle Tremors: 3 Anxiety: 3 Agitation: 3 Paroxysmal Sweats: 2 Orientation: 0-Oriented Tacttile Disturbances: 0-None Auditory Disturbances: 0-None Visual Disturbances: 0-None Headache: 4-Moderately Severe CIWA-Ar Total Score: 17 - Admission Criteria OASAS Guidelines: Admission for Medically Managed Detox: Requires at least one of the followin. CIWA greater than 12 2. Seizures within the past 24 hours 3. Delirium tremens within the past 24 hours 4. Hallucinations within the past 24 hours 5. Acute intervention needed for co occurring medical disorder 6. Acute intervention needed for co occurring psychiatric disorder 7. Severe withdrawal that cannot be handled at a lower level of care (continued vomiting, continued diarrhea, abnormal vital signs) requiring intravenous medication and/or fluids 8. Admitting History and Physical - Past Medical History ...LMP: 03/13/17 - Smoking History Smoking history: Never smoked Have you smoked in the past 12 months: No - Alcohol/Substance Use Hx Alcohol Use: Yes (socially) Admission [facility] Chief Complaint: Seeking admission to detox from Benzo. and Opioids Allergies/Adverse Reactions: Allergies Allergy/AdvReac Type Severity Reaction Status Date / Time Penicillins Allergy Intermediate Rash Verified 04/08/17 09:49 History of Present Illness: 29 years old female with a history of benzo. and opioid dependence is seeking admission to detox. Her last admission was for the period 04/18/2017-04/10/2017 and she reports that she relapsed 3 weeks ago. She reports use of 6 x 2mg Zanax and 6 x 10mg tablet oral daily. She has medical history hyperlipidemia, HPV + and psych. bipolar disorder and depression. She denies suicidal ideation at this time. She denies history of blackout and overdose. 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 Exam Limitations: No Limitations - Ebola screening Have you traveled outside of the country in the last 21 days: No Have you had contact with anyone from an Ebola affected area: No Have you been sick,other than usual withdrawal symptoms: No Do you have a fever: No - Review of Systems Constitutional: Chills, Malaise, Night Sweats, Changes in sleep EENT: reports: No Symptoms Reported Respiratory: reports: No Symptoms reported Cardiac: reports: No Symptoms Reported GI: reports: Constipated, Poor Appetite, Poor Fluid Intake, Abdominal cramping : reports: No Symptoms Reported Musculoskeletal: reports: Back Pain, Muscle Pain Integumentary: reports: Dryness, Flushing Neuro: reports: Headache, Tremors Endocrine: reports: No Symptoms Reported Hematology: reports: No Symptoms Reported Psychiatric: reports: Mood/Affect Appropiate, Orientated x3, Anxious Other Systems: Reviewed and Negative Patient History - Patient Medical History Hx Anemia: No Hx Asthma: No Hx Chronic Obstructive Pulmonary Disease (COPD): No Hx Cancer: No Hx Cardiac Disorders: No Hx Congestive Heart Failure: No Hx Hypertension: No Hx Hypercholesterolemia: No Hx Pacemaker: No HX Cerebrovascular Accident: No Hx Seizures: No Hx Dementia: No Hx Diabetes: No Hx Gastrointestinal Disorders: No Hx Genitourinary Disorders: No Hx Sexually Transmitted Disorders: Yes (HPV +) Hx Renal Disease (ESRD): No Hx Thyroid Disease: No Hx Human Immunodeficiency Virus (HIV): No Hx Hepatitis C: No Hx Depression: No Hx Suicide Attempt: No (Denies suicidal ideation at this time.) Hx Bipolar Disorder: Yes Hx Schizophrenia: No - Patient Surgical History Past Surgical History: Yes Hx Neurologic Surgery: No Hx Cataract Extraction: No Hx Cardiac Surgery: No Hx Lung Surgery: No Hx Breast Surgery: Yes (mass removed 2005) Hx Breast Biopsy: No Hx Abdominal Surgery: No Hx Appendectomy: No Hx Cholecystectomy: No Hx Genitourinary Surgery: No Hx Section: No Hx Orthopedic Surgery: No Hx Hysterectomy: No Anesthesia Reaction: No - PPD History Previous Implant?: Yes Documented Results: Negative w/proof Implanted On Prior [facility] Admission?: Yes Date: 04/10/17 Results: 0mm PPD to be Administered?: Yes - Reproductive History Patient is a Female of Child Bearing Age (11 -55 yrs old): Yes Last Menstrual Period: 05/12/20 - Smoking Cessation Smoking history: Current every day smoker Have you smoked in the past 12 months: Yes Aproximately how many cigarettes per day: 20 Hx Chewing Tobacco Use: No Initiated information on smoking cessation: Yes 'Breaking Loose' booklet given: 06/14/20 - Substance & Tx. History Hx Alcohol Use: No Hx Substance Use: Yes Substance Use Type: Opiates, Tranquilizers Hx Substance Use Treatment: Yes ([facility]) - Substances abused Alprazolam (Xanax) Substance route: Oral Frequency: Daily Amount used: 6 x 2mg =12mg Age of first use: 27 Date of last use: 06/14/20 Oxycontin Substance route: Oral Frequency: Daily Amount used: 6 x 10mg Age of first use: 23 Date of last use: 06/13/20 Admission Physical Exam [facility] Physical General Appearance: Yes: Moderate Distress, Tremorous, Sweating, Anxious HEENTM: Yes: Within Normal Limits Respiratory: Yes: Lungs Clear, Normal Breath Sounds, No Respiratory Distress Neck: Yes: Within Normal Limits Breast: Yes: Breast Exam Deferred Cardiology: Yes: Tachycardia Abdominal: Yes: Within Normal Limits Genitourinary: Yes: Within Normal Limits Back: Yes: Normal Inspection Extremities: Yes: Tremors Neurological: Yes: Within Normal Limits Integumentary: Yes: Warm Lymphatic: Yes: Within Normal Limits - Diagnostic (1) Nicotine dependence Current Visit: Yes Status: Chronic Qualifiers: Nicotine product type: cigarettes Substance use status: in withdrawal Qualified Code(s): F17.213 - Nicotine dependence, cigarettes, with withdrawal (2) HPV (human papilloma virus) infection Current Visit: Yes Status: Chronic (3) Depression Current Visit: Yes Status: Chronic (4) Opioid dependence with withdrawal Current Visit: Yes Status: Acute (5) Sedative, hypnotic or anxiolytic dependence with withdrawal, uncomplicated Current Visit: Yes Status: Acute Cleared for Admission [facility] - Detox or Rehab [facility] Level of Care: Medically Managed Detox Regimen/Protocol: Methadone/Valium Claeared for Rehab Admission: No Breathalyzer - Breathalyzer Breathalyzer: 0 Urine Drug Screen - Test Device Expiration date: 02/28/22 - Control Is test valid?: Yes - Results Drug screen NEGATIVE: No Urine drug screen results: MET-Methamphetamine, AMP-Amphetamines, OXY-Oxycodone, BZO-Benzodiazepines Inpatient Rehab Admission - Rehab Decision to Admit Inpatient rehab admission?: No
[2020-06-14] MEDS ORDERED: BISMUTH SUBSALICYLATE 524 MG/30 ML UD PO PRN (23:55)
[2020-06-14] MEDS ORDERED: MAGNESIUM HYDROX 2400MG/30ML ORAL SUSPENSION 30 ML CUP PO PRN (23:55)
[2020-06-14] MEDS ORDERED: NICOTINE POLACRILEX 2 MG GUM BUC PRN (23:55)
[2020-06-14] MEDS ORDERED: cloNIDine HCL 0.1 MG TABLET PO PRN (23:55)
[2020-06-14] MEDS ORDERED: MAGNESIUM CITRATE 300 ML BOTTLE PO PRN (23:55)
[2020-06-14] MEDS ORDERED: hydrOXYzine PAMOATE 25 MG CAPSULE (FP) PO PRN (23:55)
[2020-06-14] MEDS ORDERED: METHOCARBAMOL 500 MG TABLET PO PRN (23:55)
[2020-06-14] MEDS ORDERED: MENTHOL/PHENOL 1 EACH UD MM PRN (23:55)
[2020-06-14] MEDS ORDERED: ACETAMINOPHEN 325 MG TABLET (FP) PO PRN (23:55)
[2020-06-14] MEDS ORDERED: ONDANSETRON *ODT* 4 MG TABLET SL ONE (23:55)
[2020-06-14] MEDS ORDERED: IBUPROFEN 400 MG TABLET (FP) PO PRN (23:55)
[2020-06-15] MEDS ORDERED: METHADONE HCL 10 MG TABLET PO ONE (01:04)
[2020-06-15] MEDS: diazePAM 5 MG TABLET PO SCH ×3 (01:09→19:35)
[2020-06-15] MEDS ORDERED: METHADONE HCL 10 MG TABLET (FOR DETOX USE ONLY) PO ONE (01:30)
[2020-06-15] MEDS: diazePAM 5 MG TABLET PO PRN ×2 (02:08→10:43)
[2020-06-15] MEDS: ACETAMINOPHEN 325 MG TABLET (FP) PO PRN (02:09)
[2020-06-15] MEDS ORDERED: METHADONE HCL 5 MG TABLET (FOR DETOX USE ONLY) PO ONE (10:00)
[2020-06-15] MEDS: NICOTINE 21 MG/24 HOURS TOPICAL PATCH TD SCH (10:38)
[2020-06-15] MEDS: PRENATAL VITAMINS W/ FOLIC ACID TABLET (FP) PO SCH (10:38)
[2020-06-15 12:01] LABS: HEMOGLOBIN 13.7 GM/dL (10.7-15.3); MCH 30.1 pg (25.7-33.7); MCHC 33.5 g/dl (32.0-36.0); MEAN CELL VOLUME 89.9 fl (80-96); MEAN PLT VOLUME 8.4 fl (7.5-11.1); PLATELET COUNT 303 K/MM3 (134-434); RBC 4.57 M/mm3 (3.60-5.2); RDW 13.6 % (11.6-15.6); WHITE BLOOD COUNT 9.2 K/mm3 (4.0-10.0)
--- NOTE | 2020-06-15 12:03 | PN ---
S CIWA - CIWA Score Nausea/Vomitin-No Nausea/No Vomiting Muscle Tremors: 2 Anxiety: 3 Agitation: 1-Slight > Activity Paroxysmal Sweats: 3 Orientation: 0-Oriented Tacttile Disturbances: 0-None Auditory Disturbances: 0-None Visual Disturbances: 0-None Headache: 2-Mild CIWA-Ar Total Score: 11 BHS COWS - Scale Resting Pulse: 1= [place] 81-100 Sweatin= Beads of Sweat on Face Restless Observation: 1= Difficult to Sit Still Pupil Size: 0= Normal to Room Light Bone or Joint Aches: 2= Severe Diffuse Aches Runny Nose/ Eye Tearin= None GI Upset > 30mins: 0= None Tremor Observation of Outstretched Hands: 0= None Yawning Observation: 2= >3x During Session Anxiety or Irritability: 2=Irritable/Anxious Goose Flesh Skin: 0=Smooth Skin COWS Score: 11 S Progress Note (SOAP) Subjective: c/o anxiety, irritability, headache, sweats, muscle aches, and interrupted sleep. Objective: 06/15/20 12:02 Vital Signs 06/15/20 06/15/20 06:02 08:19 Temperature 97.3 F L 98.6 F Pulse Rate 95 H 82 Respiratory 18 18 Rate Blood Pressure 100/75 113/75 O2 Sat by Pulse 98 Oximetry (%) Labs pending. Assessment: 06/15/20 12:02 AOX3 and in no acute respiratory distress. Full ROM, ambulating in the unit. Withdrawal symptoms. EKG is abnormal. 06/15/20 12:02 Plan: continue detox. Repeat EKG in AM.
[2020-06-15 12:11] LABS: ALBUMIN 4.1 g/dl (3.4-5.0); BILIRUBIN,TOTAL 1.2 mg/dL (0.2-1); BLOOD UREA NITROGEN 11.9 mg/dL (7-18); CALCIUM 9.5 mg/dL (8.5-10.1); CREATININE 0.7 mg/dL (0.55-1.3); POTASSIUM 3.7 mmol/L (3.5-5.1); TOT PROT 8.3 g/dl (6.4-8.2)
[2020-06-15] MEDS: MELATONIN 5 MG TABLETS PO SCH (22:42)
[2020-06-15] MEDS: THIAMINE HCL 100 MG TABLET (FP) PO SCH (22:42)
[2020-06-15] MEDS: MAG HYDROX/AL HYDROX/SIMETH 30 ML UNIT-DOSE CUP PO PRN (22:43)
[2020-06-16] MEDS ORDERED: diazePAM 5 MG TABLET PO ONE (06:00)
--- NOTE | 2020-06-16 09:32 | PN ---
[facility] CIWA - CIWA Score Nausea/Vomitin-Mild Nausea/No Vomiting Muscle Tremors: 2 Anxiety: 3 Agitation: 0-Normal Activity Paroxysmal Sweats: No Perspiration Orientation: 0-Oriented Tacttile Disturbances: 0-None Auditory Disturbances: 0-None Visual Disturbances: 0-None Headache: 1-Very Mild CIWA-Ar Total Score: 7 S COWS - Scale Resting Pulse: 0= [place] 80 or Below Sweatin= No chills or Flushing Restless Observation: 0= Sits Still Pupil Size: 0= Normal to Room Light Bone or Joint Aches: 1= Mild Discomfort Runny Nose/ Eye Tearin= None GI Upset > 30mins: 2= Nausea/Diarrhea Tremor Observation of Outstretched Hands: 2= Slight Tremor Visible Yawning Observation: 0= None Anxiety or Irritability: 2=Irritable/Anxious Goose Flesh Skin: 0=Smooth Skin COWS Score: 7 S Progress Note (SOAP) Subjective: 29 years old female admitted on 06/14/20 for benzo and opiate withdrawal sx management treating with valium and methadone detox regiments feeling better today less tremor mild anxiety ms hardwick is taking xanax 2 mg po bid receiving monthly xanax prescription last filled 05/30/2020 mr hardwick prefers returning to xanax provider as after care Objective: 06/16/20 09:36 Vital Signs - 24 hr 06/15/20 06/15/20 06/15/20 12:34 17:21 20:34 Temperature 98.1 F 97.3 F L 97.1 F L Pulse Rate 79 84 97 H Respiratory 18 18 18 Rate Blood Pressure 105/60 105/71 97/65 O2 Sat by Pulse 98 100 Oximetry (%) 06/16/20 06/16/20 06/16/20 07:29 07:48 08:56 Temperature 98 F 98.6 F Pulse Rate 75 82 80 Respiratory 18 18 Rate Blood Pressure 90/56 L 97/59 L 103/64 O2 Sat by Pulse 98 Oximetry (%) Laboratory Tests 06/15/20 06/15/20 06/15/20 07:50 07:50 07:50 WBC 9.2 RBC 4.57 Hgb 13.7 Hct 41.0 MCV 89.9 MCH 30.1 MCHC 33.5 RDW 13.6 Plt Count 303 D MPV 8.4 Sodium 139 Potassium 3.7 Chloride 103 Carbon Dioxide 26 Anion Gap 9 BUN 11.9 Creatinine 0.7 Est GFR (CKD-EPI)AfAm 136.66 Est GFR (CKD-EPI)NonAf 117.91 Random Glucose 85 Calcium 9.5 Total Bilirubin 1.2 H AST 17 ALT 31 Alkaline Phosphatase 62 Total Protein 8.3 H Albumin 4.1 Syphilis Serology Non-reactive HIV Ag/Ab Combo Qual 06/15/20 07:50 WBC RBC Hgb Hct MCV MCH MCHC RDW Plt Count MPV Sodium Potassium Chloride Carbon Dioxide Anion Gap BUN Creatinine Est GFR (CKD-EPI)AfAm Est GFR (CKD-EPI)NonAf Random Glucose Calcium Total Bilirubin AST ALT Alkaline Phosphatase Total Protein Albumin Syphilis Serology HIV Ag/Ab Combo Qual Negative 06/16/20 09:37 covid pending Assessment: 06/16/20 09:37 benzo and opiate withdrawal Plan: valium and methadone regiment discussing risks of benzo mixed with opiate based substance
[2020-06-16] MEDS ORDERED: METHADONE HCL 10 MG TABLET (FOR DETOX USE ONLY) PO ONE (10:00)
[2020-06-16] MEDS: NICOTINE 21 MG/24 HOURS TOPICAL PATCH TD SCH (11:02)
[2020-06-16] MEDS: PRENATAL VITAMINS W/ FOLIC ACID TABLET (FP) PO SCH (11:02)
[2020-06-16] MEDS: diazePAM 5 MG TABLET PO PRN ×3 (11:08→19:52)
[2020-06-16] MEDS: MAG HYDROX/AL HYDROX/SIMETH 30 ML UNIT-DOSE CUP PO PRN (12:51)
--- NOTE | 2020-06-16 18:53 | EKG ---
Test Reason : Blood Pressure : / mmHG Vent. Rate : 074 BPM Atrial Rate : 074 BPM P-R Int : 196 ms QRS Dur : 082 ms QT Int : 416 ms P-R-T Axes : 070 054 064 degrees QTc Int : 461 ms NORMAL SINUS RHYTHM NORMAL ECG WHEN COMPARED WITH ECG OF 15-JUN-2020 07:26, NO SIGNIFICANT CHANGE WAS FOUND Confirmed by MD VALDEZ MOYSES ([id number]) on 06/16/2020 6:52:37 PM Referred By: Filiberto Foy Confirmed By:CHAU VALDEZ MD
--- NOTE | 2020-06-16 18:54 | EKG ---
Test Reason : Blood Pressure : / mmHG Vent. Rate : 091 BPM Atrial Rate : 091 BPM P-R Int : 210 ms QRS Dur : 092 ms QT Int : 398 ms P-R-T Axes : 068 057 071 degrees QTc Int : 489 ms SINUS RHYTHM WITH 1ST DEGREE A-V BLOCK PROLONGED QT ABNORMAL ECG WHEN COMPARED WITH ECG OF 12-APR-2017 10:57, NO SIGNIFICANT CHANGE WAS FOUND Confirmed by MD JOSÉ MIGUEL, CHAU ([id number]) on 06/16/2020 6:54:40 PM Referred By: Filiberto Foy Confirmed By:CHAU VALDEZ MD
[2020-06-16] MEDS: THIAMINE HCL 100 MG TABLET (FP) PO SCH (22:44)
[2020-06-16] MEDS: MELATONIN 5 MG TABLETS PO SCH (22:44)
[2020-06-17] MEDS: diazePAM 5 MG TABLET PO PRN ×2 (01:16→06:27)
[2020-06-17] MEDS: ACETAMINOPHEN 325 MG TABLET (FP) PO PRN (01:18)
[2020-06-17] MEDS ORDERED: METHADONE HCL 5 MG TABLET (FOR DETOX USE ONLY) PO ONE (06:00)
[2020-06-17 07:00] VITALS: TEMP 98.3
--- NOTE | 2020-06-17 09:46 | DS ---
[facility] Detox Discharge Summary Admission Date: 06/14/20 Discharge Date: 06/17/20 - History Present History: Opioid Dependence, Sedative Dependence Additional Comments: 29 years old female was admitted on 06/14/20 for benzo and opiate withdrawal sx management treated with valium and methadone detox regiments ms hardwick has completed the valium and methadone regiments and is tolerated well General Appearance: Yes: Moderate Distress, Tremorous, Sweating, Anxious HEENTM: Yes: Within Normal Limits Respiratory: Yes: Lungs Clear, Normal Breath Sounds, No Respiratory Distress Neck: Yes: Within Normal Limits Breast: Yes: Breast Exam Deferred Cardiology: Yes: Tachycardia Abdominal: Yes: Within Normal Limits Genitourinary: Yes: Within Normal Limits Back: Yes: Normal Inspection Extremities: Yes: Tremors Neurological: Yes: Within Normal Limits Integumentary: Yes: Warm Lymphatic: Yes: Within Normal Limits Pertinent Past History: time for discharge 35 minutes ms hardwick prefers returning to xanax provider for xanax 2 mg po bid daily with monthly prescription last 30 days filled on 05/30/20 - Physical Exam Results Vital Signs: Vital Signs Temperature 98.3 F 06/17/20 06:59 Pulse Rate 78 06/17/20 06:59 Respiratory Rate 16 06/17/20 06:59 Blood Pressure 94/54 L 06/17/20 06:59 O2 Sat by Pulse Oximetry (%) 100 06/17/20 06:59 Pertinent Admission Physical Exam Findings: benzo and opiate withdrawal Laboratory Tests 06/15/20 06/15/20 06/15/20 07:50 07:50 07:50 WBC 9.2 RBC 4.57 Hgb 13.7 Hct 41.0 MCV 89.9 MCH 30.1 MCHC 33.5 RDW 13.6 Plt Count 303 D MPV 8.4 Sodium 139 Potassium 3.7 Chloride 103 Carbon Dioxide 26 Anion Gap 9 BUN 11.9 Creatinine 0.7 Est GFR (CKD-EPI)AfAm 136.66 Est GFR (CKD-EPI)NonAf 117.91 Random Glucose 85 Calcium 9.5 Total Bilirubin 1.2 H AST 17 ALT 31 Alkaline Phosphatase 62 Total Protein 8.3 H Albumin 4.1 Syphilis Serology Non-reactive COVID-19 ([facility]) HIV Ag/Ab Combo Qual 06/15/20 06/15/20 07:50 10:10 WBC RBC Hgb Hct MCV MCH MCHC RDW Plt Count MPV Sodium Potassium Chloride Carbon Dioxide Anion Gap BUN Creatinine Est GFR (CKD-EPI)AfAm Est GFR (CKD-EPI)NonAf Random Glucose Calcium Total Bilirubin AST ALT Alkaline Phosphatase Total Protein Albumin Syphilis Serology COVID-19 ([facility]) Not detected HIV Ag/Ab Combo Qual Negative lab noted - Treatment Hospital Course: Detox Protocol Followed, Detoxed Safely, Responded well, Discharged Condition Good, Rehab Referral Accepted Patient has Accepted a Rehab Referral to: [facility] provider - Medication Discharge Medications: Ambulatory Orders Naloxone HCl [Narcan] 4 mg NS ASDIR PRN #1 spray 06/17/20 - Diagnosis (1) Opioid dependence with withdrawal Status: Acute (2) Sedative, hypnotic or anxiolytic dependence with withdrawal, uncomplicated Status: Acute (3) Substance induced mood disorder Status: Suspected (4) Nicotine dependence Status: Acute Qualifiers: Nicotine product type: cigarettes Substance use status: in withdrawal Qualified Code(s): F17.213 - Nicotine dependence, cigarettes, with withdrawal - AMA Did Patient Leave Against Medical Advice: No CIWA Score - CIWA Score Nausea/Vomitin-No Nausea/No Vomiting Muscle Tremors: 1-None Visible, but [place] Anxiety: 2 Agitation: 0-Normal Activity Paroxysmal Sweats: No Perspiration Orientation: 0-Oriented Tacttile Disturbances: 0-None Auditory Disturbances: 0-None Visual Disturbances: 0-None Headache: 0-None Present CIWA-Ar Total Score: 3 COWS (PN) - Opiate Withdrawal Resting Pulse: 0= [place] 80 or Below Sweatin= No chills or Flushing Restless Observation: 0= Sits Still Pupil Size: 0= Normal to Room Light Bone or Joint Aches: 1= Mild Discomfort Runny Nose/ Eye Tearin= None GI Upset > 30mins: 0= None Tremor Observation of Outstretched Hands: 1= Tremor Pearblossom, Not Seen Yawning Observation: 0= None Anxiety or Irritability: 1=Feels Anxious/Irritable Goose Flesh Skin: 0=Smooth Skin COWS Score: 3
[2020-06-17 09:54] VITALS: BP 97/55; PULSE 84
[2020-06-17] MEDS: NICOTINE 21 MG/24 HOURS TOPICAL PATCH TD SCH (10:09)
[2020-06-17] MEDS: PRENATAL VITAMINS W/ FOLIC ACID TABLET (FP) PO SCH (10:09)
== END 2020-06-17 13:14 | disposition home or self-care (01) | DRG 773 ==
LOC: YASAS 22:17 → Y3N 23:21
PROVIDERS: ADMIT Allergy & Immunology; ATTEND Allergy & Immunology
PROC: HZ2ZZZZ Detoxification Services for Substance Abuse Treatment (ICD-10-PCS; principal; 2020-06-14)
DX: F11.23 Opioid dependence with withdrawal (principal); F13.230 Sedative, hypnotic or anxiolytic dependence with withdrawal, uncomplicated; F17.210 Nicotine dependence, cigarettes, uncomplicated; F31.9 Bipolar disorder, unspecified; F19.24 Other psychoactive substance dependence with psychoactive substance-induced mood disorder; E78.5 Hyperlipidemia, unspecified; A63.0 Anogenital (venereal) warts; B97.7 Papillomavirus as the cause of diseases classified elsewhere; Z88.0 Allergy status to penicillin
CPT/HCPCS: 36415; 80053; 85027; 86780; 87389; 93005; 93010; U0003

== ENCOUNTER 2020-10-21 11:34 | Inpatient (IN) | payer OTHER ==
[2020-10-21 13:34] VITALS: BMI 28.4
[2020-10-21] MEDS ORDERED: MAGNESIUM CITRATE 300 ML BOTTLE PO PRN (13:34)
[2020-10-21] MEDS ORDERED: IBUPROFEN 400 MG TABLET (FP) PO PRN (13:34)
[2020-10-21] MEDS ORDERED: MAGNESIUM HYDROX 2400MG/30ML ORAL SUSPENSION 30 ML CUP PO PRN (13:34)
[2020-10-21] MEDS ORDERED: MENTHOL/PHENOL 1 EACH UD MM PRN (13:34)
[2020-10-21] MEDS ORDERED: NICOTINE POLACRILEX 2 MG GUM BUC PRN (13:34)
[2020-10-21] MEDS ORDERED: BISMUTH SUBSALICYLATE 262 MG/15 ML BTL PO PRN (13:34)
[2020-10-21] MEDS ORDERED: ACETAMINOPHEN 325 MG TABLET (FP) PO PRN (13:34)
[2020-10-21] MEDS ORDERED: methaDONE HCL 10 MG TABLET (FOR DETOX USE ONLY) PO ONE (14:00)
[2020-10-21] MEDS: hydrOXYzine PAMOATE 25 MG CAPSULE (FP) PO SCH ×3 (15:32→22:48)
[2020-10-21] MEDS: ONDANSETRON *ODT* 4 MG TABLET SL PRN (15:33)
[2020-10-21 17:27] LABS: CALCIUM 9.2 mg/dL (8.5-10.1); HEMATOCRIT 40.4 % (32.4-45.2); HEMOGLOBIN 13.3 GM/dL (10.7-15.3); MCH 29.7 pg (25.7-33.7); MEAN CELL VOLUME 90.2 fl (80-96); MEAN PLT VOLUME 7.9 fl (7.5-11.1); PLATELET COUNT 294 K/MM3 (134-434); RBC 4.48 M/mm3 (3.60-5.2); RDW 13.6 % (11.6-15.6); WHITE BLOOD COUNT 10.3 K/mm3 (4.0-10.0)
[2020-10-21 17:28] LABS: ALBUMIN 4.2 g/dl (3.4-5.0); BLOOD UREA NITROGEN 9.3 mg/dL (7-18)
[2020-10-21 17:31] LABS: CREATININE 0.6 mg/dL (0.55-1.3)
[2020-10-21 17:32] LABS: TOT PROT 8.2 g/dl (6.4-8.2)
[2020-10-21 18:23] LABS: HIV INTERPRETATION NEGATIVE (NEGATIVE)
[2020-10-21] MEDS: cloNIDine HCL 0.1 MG TABLET PO PRN (22:48)
[2020-10-21] MEDS: THIAMINE HCL 100 MG TABLET (FP) PO SCH (22:48)
[2020-10-21] MEDS: METHOCARBAMOL 500 MG TABLET PO PRN (22:48)
[2020-10-21] MEDS: MELATONIN 5 MG TABLETS PO SCH (22:48)
[2020-10-22] MEDS: hydrOXYzine PAMOATE 25 MG CAPSULE (FP) PO SCH ×5 (06:07→22:13)
[2020-10-22] MEDS ORDERED: methaDONE HCL 10 MG TABLET (FOR DETOX USE ONLY) ONE (09:19)
[2020-10-22] MEDS: METHOCARBAMOL 500 MG TABLET PO PRN (10:23)
[2020-10-22] MEDS: PRENATAL VITAMINS W/ FOLIC ACID TABLET (FP) PO SCH (10:24)
[2020-10-22] MEDS: NICOTINE 14 MG/24 HOURS TOPICAL PATCH TD SCH (12:17)
[2020-10-22] MEDS: ONDANSETRON *ODT* 4 MG TABLET SL PRN (15:29)
[2020-10-22] MEDS: MAG HYDROX/AL HYDROX/SIMETH 30 ML UNIT-DOSE CUP PO PRN (19:23)
[2020-10-22] MEDS: SUVOREXANT 10 MG TABLET PO PRN (22:13)
[2020-10-22] MEDS: THIAMINE HCL 100 MG TABLET (FP) PO SCH (22:14)
[2020-10-23] MEDS: MELATONIN 5 MG TABLETS PO SCH ×2 (00:20→22:22)
[2020-10-23] MEDS: MAG HYDROX/AL HYDROX/SIMETH 30 ML UNIT-DOSE CUP PO PRN ×3 (01:30→21:02)
[2020-10-23] MEDS: hydrOXYzine PAMOATE 25 MG CAPSULE (FP) PO SCH ×2 (06:48→10:02)
[2020-10-23] MEDS ORDERED: methaDONE HCL 10 MG TABLET (FOR DETOX USE ONLY) PO ONE (10:00)
[2020-10-23] MEDS: NICOTINE 14 MG/24 HOURS TOPICAL PATCH TD SCH (10:01)
[2020-10-23] MEDS: PRENATAL VITAMINS W/ FOLIC ACID TABLET (FP) PO SCH (10:02)
[2020-10-23 10:55] LABS: BASO % 0.2 % (0-2.0); EOS % 0.7 % (0-4.5); HEMATOCRIT 37.7 % (32.4-45.2); HEMOGLOBIN 12.2 GM/dL (10.7-15.3); LYMPH % 46.2 % (8-40); MCH 29.7 pg (25.7-33.7); MCHC 32.4 g/dl (32.0-36.0); MEAN CELL VOLUME 91.9 fl (80-96); NEUT % 42.9 % (42.8-82.8); PLATELET COUNT 249 K/MM3 (134-434); RDW 13.5 % (11.6-15.6); WHITE BLOOD COUNT 6.3 K/mm3 (4.0-10.0)
[2020-10-23 10:58] LABS: CALCIUM 8.7 mg/dL (8.5-10.1)
[2020-10-23 10:59] LABS: ALBUMIN 3.8 g/dl (3.4-5.0); BLOOD UREA NITROGEN 13.1 mg/dL (7-18)
[2020-10-23 11:02] LABS: CREATININE 0.6 mg/dL (0.55-1.3)
[2020-10-23 11:03] LABS: BILIRUBIN,TOTAL 0.8 mg/dL (0.2-1)
[2020-10-23 11:04] LABS: TOT PROT 7.2 g/dl (6.4-8.2)
[2020-10-23] MEDS: ACETAMINOPHEN 325 MG TABLET (FP) PO PRN (12:03)
[2020-10-23] MEDS: ONDANSETRON *ODT* 4 MG TABLET SL PRN (15:28)
[2020-10-23] MEDS: hydrOXYzine PAMOATE 25 MG CAPSULE (FP) PO PRN (18:11)
[2020-10-23] MEDS: SUVOREXANT 10 MG TABLET PO PRN (21:00)
[2020-10-23] MEDS: cloNIDine HCL 0.1 MG TABLET PO PRN (21:01)
[2020-10-23] MEDS: METHOCARBAMOL 500 MG TABLET PO PRN (21:01)
[2020-10-23] MEDS: THIAMINE HCL 100 MG TABLET (FP) PO SCH (21:01)
[2020-10-24] MEDS ORDERED: methaDONE HCL 10 MG TABLET (FOR DETOX USE ONLY) ONE (09:19)
[2020-10-24] MEDS: NICOTINE 14 MG/24 HOURS TOPICAL PATCH TD SCH (10:10)
[2020-10-24] MEDS: PRENATAL VITAMINS W/ FOLIC ACID TABLET (FP) PO SCH (10:10)
[2020-10-24] MEDS: hydrOXYzine PAMOATE 25 MG CAPSULE (FP) PO PRN (10:11)
[2020-10-24] MEDS: diazePAM 5 MG TABLET PO PRN ×3 (14:55→22:55)
[2020-10-24] MEDS: MAG HYDROX/AL HYDROX/SIMETH 30 ML UNIT-DOSE CUP PO PRN ×2 (17:12→22:53)
[2020-10-24] MEDS: SUVOREXANT 10 MG TABLET PO PRN (20:58)
[2020-10-24] MEDS: ACETAMINOPHEN 325 MG TABLET (FP) PO PRN (21:00)
[2020-10-24] MEDS: THIAMINE HCL 100 MG TABLET (FP) PO SCH (21:00)
[2020-10-24] MEDS: MELATONIN 5 MG TABLETS PO SCH (23:32)
[2020-10-25] MEDS: diazePAM 5 MG TABLET PO PRN ×5 (04:31→21:16)
[2020-10-25] MEDS: MAG HYDROX/AL HYDROX/SIMETH 30 ML UNIT-DOSE CUP PO PRN ×2 (04:31→22:21)
[2020-10-25] MEDS ORDERED: methaDONE HCL 10 MG TABLET (FOR DETOX USE ONLY) PO ONE (10:00)
[2020-10-25] MEDS: NICOTINE 14 MG/24 HOURS TOPICAL PATCH TD SCH (10:12)
[2020-10-25] MEDS: PRENATAL VITAMINS W/ FOLIC ACID TABLET (FP) PO SCH (10:14)
[2020-10-25] MEDS ORDERED: PANTOPRAZOLE 40 MG TABLET PO ONE (10:46)
[2020-10-25 11:24] LABS: BASO % 0.4 % (0-2.0); EOS % 0.5 % (0-4.5); HEMATOCRIT 38.3 % (32.4-45.2); HEMOGLOBIN 12.7 GM/dL (10.7-15.3); LYMPH % 40.2 % (8-40); MCH 29.8 pg (25.7-33.7); MCHC 33.2 g/dl (32.0-36.0); MEAN CELL VOLUME 89.8 fl (80-96); MONO % 11.9 % (3.8-10.2); PLATELET COUNT 262 K/MM3 (134-434); RBC 4.27 M/mm3 (3.60-5.2); RDW 12.8 % (11.6-15.6); WHITE BLOOD COUNT 6.1 K/mm3 (4.0-10.0)
[2020-10-25] MEDS: hydrOXYzine PAMOATE 25 MG CAPSULE (FP) PO PRN ×3 (13:08→21:16)
[2020-10-25] MEDS: SUVOREXANT 10 MG TABLET PO PRN (21:15)
[2020-10-25] MEDS: THIAMINE HCL 100 MG TABLET (FP) PO SCH (21:16)
[2020-10-25] MEDS: MELATONIN 5 MG TABLETS PO SCH (22:16)
[2020-10-26] MEDS: diazePAM 5 MG TABLET PO PRN ×2 (04:05→08:02)
[2020-10-26] MEDS: hydrOXYzine PAMOATE 25 MG CAPSULE (FP) PO PRN ×2 (04:05→08:03)
[2020-10-26] MEDS ORDERED: PANTOPRAZOLE 40 MG TABLET PO SCH (07:00)
[2020-10-26 09:26] VITALS: BP 128/71; PULSE 86; TEMP 97.7
== END 2020-10-26 10:30 | disposition home or self-care (01) | DRG 773 ==
LOC: YASAS 11:34 → Y6N 14:27
PROVIDERS: ADMIT Allergy & Immunology; ATTEND Allergy & Immunology
PROC: HZ2ZZZZ Detoxification Services for Substance Abuse Treatment (ICD-10-PCS; principal; 2020-10-21)
DX: F11.23 Opioid dependence with withdrawal (principal); F16.20 Hallucinogen dependence, uncomplicated; F17.213 Nicotine dependence, cigarettes, with withdrawal; F19.24 Other psychoactive substance dependence with psychoactive substance-induced mood disorder; F19.282 Other psychoactive substance dependence with psychoactive substance-induced sleep disorder; F31.81 Bipolar II disorder; E78.5 Hyperlipidemia, unspecified; B18.2 Chronic viral hepatitis C; B97.7 Papillomavirus as the cause of diseases classified elsewhere; D72.829 Elevated white blood cell count, unspecified; E80.6 Other disorders of bilirubin metabolism; Z88.0 Allergy status to penicillin
CPT/HCPCS: 36415; 80053; 81025; 85025; 85027; 86780; 87389; C9803; J0735; Q0162; U0003

== ENCOUNTER 2023-01-24 06:57 | Inpatient (IN) | payer OTHER ==
[2023-01-24 07:12] VITALS: BMI 26.8
[2023-01-24] MEDS ORDERED: NICOTINE 10 MG CARTRIDGE (INHALER) IH PRN (12:14)
[2023-01-24] MEDS ORDERED: hydrOXYzine PAMOATE 25 MG CAPSULE (FP) PO PRN (12:14)
[2023-01-24] MEDS ORDERED: NALOXONE HCL (KLOXXADO) 8 MG SPRAY NS PRN (12:14)
[2023-01-24] MEDS ORDERED: LOPERAMIDE HCL 2 MG CAPSULE PO PRN (12:14)
[2023-01-24] MEDS ORDERED: POLYETHYLENE GLYCOL (HEALTHYLAX) 3350 17 GM PACKET PO PRN (12:14)
[2023-01-24] MEDS ORDERED: IBUPROFEN 400 MG TABLET (FP) PO PRN (12:14)
[2023-01-24] MEDS ORDERED: guaiFENesin 600 MG TABLET.ER (FP) PO PRN (12:14)
[2023-01-24] MEDS ORDERED: ACETAMINOPHEN 325 MG TABLET (FP) PO PRN (12:14)
[2023-01-24] MEDS ORDERED: MAGNESIUM HYDROX 2400MG/30ML ORAL SUSPENSION 30 ML CUP PO PRN (12:14)
[2023-01-24] MEDS ORDERED: BENZOCAINE/MENTHOL (CHLORASEPTIC ) LOZENGE MM PRN (12:14)
[2023-01-24] MEDS ORDERED: IBUPROFEN 600 MG TABLET (FP) PO PRN (12:14)
[2023-01-24] MEDS ORDERED: NALOXONE HCL 0.4 MG/ML VIAL IM PRN (12:14)
[2023-01-24] MEDS ORDERED: BENZONATATE 200 MG CAPSULE PO PRN (12:14)
[2023-01-24] MEDS: SUVOREXANT 10 MG TABLET PO PRN (21:13)
[2023-01-24] MEDS: THIAMINE HCL 100 MG TABLET (FP) PO SCH (21:13)
[2023-01-24] MEDS: hydrOXYzine PAMOATE 25 MG CAPSULE (FP) PO PRN (21:13)
[2023-01-24] MEDS ORDERED: MELATONIN 5 MG TABLETS PO SCH (22:00)
[2023-01-25] MEDS: ARIPiprazole 5 MG TABLET PO SCH (10:33)
[2023-01-25] MEDS: PRENATAL VITAMINS W/ FOLIC ACID TABLET (FP) PO SCH (10:33)
[2023-01-25] MEDS: hydrOXYzine PAMOATE 25 MG CAPSULE (FP) PO PRN ×2 (10:34→21:06)
[2023-01-25] MEDS ORDERED: methaDONE HCL 40 MG DISPERSABLE TABLET PO ONE (11:31)
[2023-01-25 11:40] LABS: ALBUMIN 2.8 g/dl (3.4-5.0); BLOOD UREA NITROGEN 8.5 mg/dL (7-18); CALCIUM 8.2 mg/dL (8.5-10.1)
[2023-01-25 11:41] LABS: HEMATOCRIT 34.7 % (32.4-45.2); HEMOGLOBIN 11.4 GM/dL (10.7-15.3); MCH 27.8 pg (25.7-33.7); MCHC 32.7 g/dl (32.0-36.0); MEAN CELL VOLUME 84.8 fl (80-96); MEAN PLT VOLUME 7.7 fl (7.5-11.1); PLATELET COUNT 264 10^3/uL (134-434); RDW 14.1 % (11.6-15.6); WHITE BLOOD COUNT 5.1 K/mm3 (4.0-10.0)
[2023-01-25 11:43] LABS: CREATININE 0.5 mg/dL (0.55-1.3)
[2023-01-25 11:44] LABS: BILIRUBIN,TOTAL 0.6 mg/dL (0.2-1)
[2023-01-25 11:45] LABS: TOT PROT 6.6 g/dl (6.4-8.2)
[2023-01-25 11:54] LABS: SYPHILIS W/ RPR CONF NON-REACTIVE (NONREACTIVE)
[2023-01-25] MEDS: THIAMINE HCL 100 MG TABLET (FP) PO SCH (21:06)
[2023-01-25] MEDS: SUVOREXANT 10 MG TABLET PO PRN (21:06)
[2023-01-26] MEDS: methaDONE HCL 40 MG DISPERSABLE TABLET PO SCH (06:21)
[2023-01-26] MEDS: hydrOXYzine PAMOATE 25 MG CAPSULE (FP) PO PRN ×2 (10:12→21:09)
[2023-01-26] MEDS: ARIPiprazole 5 MG TABLET PO SCH (10:12)
[2023-01-26] MEDS: PRENATAL VITAMINS W/ FOLIC ACID TABLET (FP) PO SCH (10:12)
[2023-01-26] MEDS: METHOCARBAMOL 500 MG TABLET PO PRN (16:39)
[2023-01-26] MEDS: THIAMINE HCL 100 MG TABLET (FP) PO SCH (21:09)
[2023-01-26] MEDS: SUVOREXANT 10 MG TABLET PO PRN (21:10)
[2023-01-27] MEDS: methaDONE HCL 40 MG DISPERSABLE TABLET PO SCH (06:13)
[2023-01-27] MEDS: METHOCARBAMOL 500 MG TABLET PO PRN ×2 (08:23→16:22)
[2023-01-27] MEDS: ARIPiprazole 5 MG TABLET PO SCH (10:23)
[2023-01-27] MEDS: PRENATAL VITAMINS W/ FOLIC ACID TABLET (FP) PO SCH (10:23)
[2023-01-27 14:27] LABS: EPI CELLS >36 /uL (0-25.1); HYALINE CASTS 1 /uL (0-3.1); URINE APPEARANCE CLOUDY; URINE BACTERIA 923 /uL (0-1359); URINE BILIRUBIN NEGATIVE (NEGATIVE); URINE COLOR YELLOW; URINE GLUCOSE (UA) NEGATIVE (NEGATIVE); URINE KETONE NEGATIVE (NEGATIVE); URINE LEUK ESTERASE NEGATIVE (NEGATIVE); URINE NITRITE NEGATIVE (NEGATIVE); URINE PROTEIN NEGATIVE (NEGATIVE); URINE RBC 7 /uL (0-23.9); URINE UROBILINOGEN 0.2 mg/dL (0.2-1.0); URINE WBC 8 /uL (0-25.8)
[2023-01-27 14:53] LABS: YEAST NO SEEN (NEGATIVE)
[2023-01-27] MEDS: SUVOREXANT 10 MG TABLET PO PRN (21:14)
[2023-01-27] MEDS: THIAMINE HCL 100 MG TABLET (FP) PO SCH (21:14)
[2023-01-27] MEDS: hydrOXYzine PAMOATE 25 MG CAPSULE (FP) PO PRN (21:15)
[2023-01-28] MEDS: METHOCARBAMOL 500 MG TABLET PO PRN ×3 (02:11→17:19)
[2023-01-28] MEDS: methaDONE HCL 40 MG DISPERSABLE TABLET PO SCH (06:19)
[2023-01-28] MEDS: MAG HYDROX/AL HYDROX/SIMETH 30 ML UNIT-DOSE CUP PO PRN (07:32)
[2023-01-28] MEDS: ARIPiprazole 5 MG TABLET PO SCH (10:12)
[2023-01-28] MEDS: PRENATAL VITAMINS W/ FOLIC ACID TABLET (FP) PO SCH (10:12)
[2023-01-28] MEDS ORDERED: ONDANSETRON *ODT* 4 MG TABLET SL PRN (12:10)
[2023-01-28] MEDS: THIAMINE HCL 100 MG TABLET (FP) PO SCH (21:11)
[2023-01-28] MEDS: SUVOREXANT 10 MG TABLET PO PRN (21:13)
[2023-01-28] MEDS: hydrOXYzine PAMOATE 25 MG CAPSULE (FP) PO PRN (21:13)
[2023-01-29] MEDS: METHOCARBAMOL 500 MG TABLET PO PRN ×3 (01:05→18:34)
[2023-01-29] MEDS: MAG HYDROX/AL HYDROX/SIMETH 30 ML UNIT-DOSE CUP PO PRN (01:06)
[2023-01-29] MEDS: methaDONE HCL 40 MG DISPERSABLE TABLET PO SCH (06:23)
[2023-01-29 06:52] VITALS: RESP 16; TEMP 97.8
[2023-01-29] MEDS: ARIPiprazole 5 MG TABLET PO SCH (10:05)
[2023-01-29] MEDS: PRENATAL VITAMINS W/ FOLIC ACID TABLET (FP) PO SCH (10:05)
[2023-01-29] MEDS: hydrOXYzine PAMOATE 25 MG CAPSULE (FP) PO PRN (21:16)
[2023-01-29] MEDS: THIAMINE HCL 100 MG TABLET (FP) PO SCH (21:17)
[2023-01-29] MEDS: SUVOREXANT 10 MG TABLET PO PRN (21:20)
[2023-01-30] MEDS: methaDONE HCL 40 MG DISPERSABLE TABLET PO SCH (06:25)
[2023-01-30 08:25] VITALS: BP 109/69; PULSE 73
[2023-01-30] MEDS: METHOCARBAMOL 500 MG TABLET PO PRN ×2 (08:38→17:02)
[2023-01-30] MEDS: ARIPiprazole 5 MG TABLET PO SCH (10:08)
[2023-01-30] MEDS: PRENATAL VITAMINS W/ FOLIC ACID TABLET (FP) PO SCH (10:08)
== END 2023-01-30 17:48 | disposition home or self-care (01) | DRG 772 ==
LOC: YASAS 06:57 → Y5N 12:30
PROVIDERS: ADMIT Allergy & Immunology; ATTEND Psychiatry & Neurology Pain Medicine
PROC: HZ42ZZZ Group Counseling for Substance Abuse Treatment, Cognitive-Behavioral (ICD-10-PCS; principal; 2023-01-24)
DX: F11.20 Opioid dependence, uncomplicated (principal); F14.20 Cocaine dependence, uncomplicated; F31.81 Bipolar II disorder; F19.282 Other psychoactive substance dependence with psychoactive substance-induced sleep disorder; F19.24 Other psychoactive substance dependence with psychoactive substance-induced mood disorder; R11.2 Nausea with vomiting, unspecified; Z86.19 Personal history of other infectious and parasitic diseases; Z87.891 Personal history of nicotine dependence; Z88.0 Allergy status to penicillin
CPT/HCPCS: 36415; 80053; 81003; 81025; 82962; 83036; 85027; 86780; 86803; 87811; C9803-CS; Q0162; U0003; U0005

== ENCOUNTER 2023-06-15 06:36 | Inpatient (IN) | payer OTHER ==
[2023-06-15 07:14] VITALS: BMI 31.6
[2023-06-15] MEDS ORDERED: METHOCARBAMOL 500 MG TABLET PO PRN (08:31)
[2023-06-15] MEDS ORDERED: BENZONATATE 200 MG CAPSULE PO PRN (08:31)
[2023-06-15] MEDS ORDERED: ACETAMINOPHEN 325 MG TABLET (FP) PO PRN (08:31)
[2023-06-15] MEDS ORDERED: ONDANSETRON *ODT* 4 MG TABLET SL PRN (08:31)
[2023-06-15] MEDS ORDERED: NALOXONE HCL (KLOXXADO) 8 MG SPRAY NS PRN (08:31)
[2023-06-15] MEDS ORDERED: BENZOCAINE/MENTHOL (CHLORASEPTIC ) LOZENGE MM PRN (08:31)
[2023-06-15] MEDS ORDERED: LOPERAMIDE HCL 2 MG CAPSULE PO PRN (08:31)
[2023-06-15] MEDS ORDERED: POLYETHYLENE GLYCOL (HEALTHYLAX) 3350 17 GM PACKET PO PRN (08:31)
[2023-06-15] MEDS ORDERED: MAG HYDROX/AL HYDROX/SIMETH 30 ML UNIT-DOSE CUP PO PRN (08:31)
[2023-06-15] MEDS ORDERED: MAGNESIUM HYDROX 2400MG/30ML ORAL SUSPENSION 30 ML CUP PO PRN (08:31)
[2023-06-15] MEDS ORDERED: IBUPROFEN 600 MG TABLET (FP) PO PRN (08:31)
[2023-06-15] MEDS ORDERED: guaiFENesin 600 MG TABLET.ER (FP) PO PRN (08:31)
[2023-06-15] MEDS ORDERED: hydrOXYzine PAMOATE 25 MG CAPSULE (FP) PO PRN (08:31)
[2023-06-15] MEDS ORDERED: NALOXONE HCL 0.4 MG/ML VIAL IM PRN (08:31)
[2023-06-15] MEDS ORDERED: DICYCLOMINE HCL 10 MG CAPSULE PO PRN (08:31)
[2023-06-15] MEDS ORDERED: methaDONE HCL 10 MG TABLET (FOR DETOX USE ONLY) PO ONE (08:31)
[2023-06-15] MEDS ORDERED: cloNIDine HCL 0.1 MG TABLET PO PRN (08:31)
[2023-06-15] MEDS ORDERED: BISMUTH SUBSALICYLATE 262 MG/15 ML BTL PO PRN (08:31)
[2023-06-15] MEDS ORDERED: IBUPROFEN 400 MG TABLET (FP) PO PRN (08:31)
[2023-06-15] MEDS ORDERED: methaDONE HCL 10 MG TABLET (FOR DETOX USE ONLY) ONE (09:09)
[2023-06-15] MEDS ORDERED: PRENATAL VITAMINS W/ FOLIC ACID TABLET (FP) PO ONE (09:09)
[2023-06-15] MEDS: PRENATAL VITAMINS W/ FOLIC ACID TABLET (FP) PO SCH (09:19)
[2023-06-15] MEDS: NICOTINE 7 MG/24 HOURS TOPICAL PATCH TD SCH (09:19)
[2023-06-15 13:54] LABS: HEMOGLOBIN 12.1 GM/dL (10.7-15.3); MCH 28.6 pg (25.7-33.7); MCHC 33.6 g/dl (32.0-36.0); MEAN CELL VOLUME 84.9 fl (80-96); MEAN PLT VOLUME 7.9 fl (7.5-11.1); PLATELET COUNT 244 10^3/uL (134-434); RBC 4.24 M/mm3 (3.60-5.2); RDW 14.7 % (11.6-15.6); WHITE BLOOD COUNT 12.2 K/mm3 (4.0-10.0)
[2023-06-15 14:36] LABS: CALCIUM 8.2 mg/dL (8.5-10.1)
[2023-06-15 14:37] LABS: ALBUMIN 3.2 g/dl (3.4-5.0); BLOOD UREA NITROGEN 10.4 mg/dL (7-18)
[2023-06-15 14:40] LABS: CREATININE 0.6 mg/dL (0.55-1.3)
[2023-06-15 14:41] LABS: BILIRUBIN,TOTAL 0.5 mg/dL (0.2-1); TOT PROT 6.6 g/dl (6.4-8.2)
[2023-06-15] MEDS ORDERED: THIAMINE HCL 100 MG TABLET (FP) PO SCH (22:00)
[2023-06-15] MEDS ORDERED: MELATONIN 5 MG TABLETS PO SCH (22:00)
[2023-06-15] MEDS ORDERED: ARIPiprazole 10 MG TABLET PO SCH (22:00)
[2023-06-16 06:29] VITALS: RESP 16
[2023-06-16 09:56] VITALS: BP 100/60; PULSE 86; TEMP 97.9
[2023-06-16] MEDS: PRENATAL VITAMINS W/ FOLIC ACID TABLET (FP) PO SCH (10:20)
[2023-06-16] MEDS: NICOTINE 7 MG/24 HOURS TOPICAL PATCH TD SCH (10:20)
[2023-06-17] MEDS ORDERED: methaDONE HCL 10 MG TABLET (FOR DETOX USE ONLY) PO ONE (10:00)
[2023-06-19] MEDS ORDERED: methaDONE HCL 10 MG TABLET (FOR DETOX USE ONLY) PO ONE (10:00)
== END 2023-06-16 11:41 | disposition left against medical advice (07) | DRG 770 ==
LOC: YASAS 06:36 → Y6N 09:39 → Y3N 17:58
PROVIDERS: ADMIT Allergy & Immunology; ATTEND Allergy & Immunology
PROC: HZ2ZZZZ Detoxification Services for Substance Abuse Treatment (ICD-10-PCS; principal; 2023-06-15)
DX: F11.23 Opioid dependence with withdrawal (principal); F13.230 Sedative, hypnotic or anxiolytic dependence with withdrawal, uncomplicated; F14.20 Cocaine dependence, uncomplicated; F17.210 Nicotine dependence, cigarettes, uncomplicated; F31.9 Bipolar disorder, unspecified; F41.9 Anxiety disorder, unspecified; F90.9 Attention-deficit hyperactivity disorder, unspecified type; E78.5 Hyperlipidemia, unspecified; Z86.19 Personal history of other infectious and parasitic diseases; Z88.0 Allergy status to penicillin
CPT/HCPCS: 36415; 80053; 81025; 85027; 86780; 87635; 87811